=== PATIENT | female | born 2000 | race Caucasian/White ===

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

== ENCOUNTER → 2023-03-04 | Outpatient (CLI) | payer OTHER, SELFPAY ==
--- OUTSIDE RECORDS SUMMARY | 2023-03-04 15:22 | XMS RPT_ITS | CCD ---
Author Name Unknown Address [address] [place] [address] Organization [facility] Care Team Providers Care Superintendent Marine Name Role Phone SHANT ANG Unavailable Unavailable SHANT ANG Unavailable Unavailable HILLS, JENNIFER Cruz Unavailable Unavailable CHERRI, JOAO Unavailable Unavailable HILLSTRISTANJENNIFER D Unavailable Unavailable HILLS, JENNIFER D Unavailable Unavailable CHERRI, JOAO Unavailable Unavailable CHERRI, JOAO Unavailable Unavailable TRISTAN MEEKSBERLY D Unavailable Unavailable UNGERER, DOMINGA WATCH REPAIRER APPRENTICE Admitting Unavailable UNGERER, DOMINGA WATCH REPAIRER APPRENTICE Primary Care Unavailable UNGERER, DOMINGA WATCH REPAIRER APPRENTICE Attending Unavailable ZANE STEVEN Consulting Unavailable PROVIDER, UNKNOWN Consulting Unavailable PROVIDER, UNKNOWN Consulting Unavailable PROVIDER, UNKNOWN Consulting Unavailable UNGERER, DOMINGA WATCH REPAIRER APPRENTICE Primary Care Unavailable UNGERER, DOMINGA WATCH REPAIRER APPRENTICE Attending Unavailable UNGERER, DOMINGA WATCH REPAIRER APPRENTICE Admitting Unavailable ZANE STEVEN Consulting Unavailable PROVIDER, UNKNOWN Consulting Unavailable PROVIDER, UNKNOWN Consulting Unavailable PROVIDER, UNKNOWN Consulting Unavailable CORAZON GUILLEN R Attending Unavailable ELZBIETA GUILLENLE R Admitting Unavailable STEPHANIE GUILLENHELLE R Primary Care Unavailable ZANE STEVEN Consulting Unavailable PROVIDER, UNKNOWN Consulting Unavailable PROVIDER, UNKNOWN Consulting Unavailable PROVIDER, UNKNOWN Consulting Unavailable UNGERER, DOMINGA WATCH REPAIRER APPRENTICE Primary Care Unavailable UNGERER, DOMINGA WATCH REPAIRER APPRENTICE Attending Unavailable UNGERER, DOMINGA WATCH REPAIRER APPRENTICE Admitting Unavailable ZANE STEVEN Consulting Unavailable PROVIDER, UNKNOWN Consulting Unavailable PROVIDER, UNKNOWN Consulting Unavailable PROVIDER, UNKNOWN Consulting Unavailable Allergies Allergy Classification Reported Allergen(s) Allergy Type Date of Onset Reaction(s) Facility (1 source) Amoxicillin; Translations: [AMOXICILLIN] Drug Allergy 12-14-2017 [facility] Repository Problems Active Problems Problem Classification Problem Date Documented Da te Episodic/Chronic Administrative/social admission (3 sources) Person with feared health complaint in whom no diagnosis is made; Translations: [Person with feared health complaint in whom no diagnosis is made] Onset: 08-18-2022 Episodic Nonmalignant breast conditions (1 source) Solitary cyst of left breast; Translations: [Solitary cyst of left breast] Onset: 01-04-2023 Episodic Past or Other Problems Problem Classification Problem Date Documented Da te Episodic/Chronic Other skin disorders (3 sources) Rash and other nonspecific skin eruption; Translations: [Rash and other nonspecific skin eruption] Onset: 06-30-2022 Episodic Residual codes; unclassified (1 source) Body mass index (BMI) 20.0-20.9, adult; Translations: [Body mass index [BMI] 20.0-20.9, adult] Onset: 06-30-2022 Episodic Results Test Name Value Interpretation Reference Range Facil ity Encounters Encounter Date Encounter Type Care Provider Facility Start: 01-04-2023 End: 01-04-2023 ambulatory [facility]INGA ALLAN [facility] Start: 08-18-2022 End: 08-18-2022 [facility] CORAZON GUILLEN [facility] Start: 06-30-2022 End: 06-30-2022 [facility] DOMINGA ALLNA [facility] Start: 12-14-2017 End: 12-15-2017 Patient encounter procedure [facility] Start: 12-14-2017 End: 12-14-2017 Patient encounter procedure [facility] Start: 09-26-2017 End: 09-26-2017 Patient encounter procedure SHANT ANG [facility] Payers Date Payer Category Payer Unknown [id number] [id number] 2000 Unknown [id number] [id number] 2000 Unknown [id number] 2.16.84 [id number] 2000 Unknown [id number] [id number] [id number] Unknown [id number] 2.16.8 [id number] Unknown [id number] 2.16.8 [id number] Unknown [id number] 2.16.8 [id number] Unknown [id number] Unknown [id number] Unknown [id number] Summary Purpose Family History No Family History Records FoundNo Family History Records FoundNo Family History Records Found Advance Directives No Advanced Directives Records FoundNo Advanced Directives Records FoundNo Advanced Directives Records Found Additional Source Comments INFORMATION SOURCE (unrecogn ized section and content) DATE CREATED AUTHOR AUTHOR'S ORGANIZ ATION 12/19/2020 [facility] DATE CREATED AUTHOR AUTHOR'S ORGANIZ ATION 01/10/2023 [facility] FOR RECORDS PERTAINING TO PATIENTS WHO ARE OR HAVE BEEN ENROLLED IN A CHEMICAL DEPENDENCY/SUBSTANCEABUSE PROGRAM, SOME INFORMATION MAY BE OMITTED. This clinical summary was aggregated from multiple sources. Caution should be exercised in using it in the provision of clinical care. This summary normalizes information from multiple sources, and as a consequence, information in this document may materially change the coding, format and clinical context of patient data. In addition, data may be omitted in some cases. CLINICAL DECISIONS SHOULD BE BASED ON THE PRIMARY CLINICAL RECORDS. [facility]. provides no warranty or guarantee of the accuracy or completeness of information in this document.
[2023-03-04 15:36] LABS: Absolute Lymphocyte Count 2.58 X10^3/uL (0.83-4.51); Absolute Neutrophil Count 8.2 X10^3/uL (2.0-7.7); Basophil# 0.04 X10^3/uL; Basophil% 0.3 % (0-1); Eosinophils% 1.7 % (0-5); Hematocrit 37.3 % (37-47); Hemoglobin 13.1 g/dL (12.0-15.0); Lymphocyte # 2.58 X10^3/ul (0.83-4.51); Lymphocyte % 22.2 % (19-41); Mean Corp Hgb Conc 35.1 g/dL (32-36); Mean Corpuscular Volume 85.6 fL (81-99); Mean Platelet Vol. 9.9 fl (6.2-12.0); Monocyte# 0.59 X10^3/uL; Monocyte% 5.1 % (0-10); NRBC Flagged by Analyzer 0 % (0-5); Neutrophil # 8.17 X10^3/uL (2.7-7.7); Neutrophil % 70.4 % (47-70); Platelet Count 278 K/mm3 (150-450); RBC Distribution Width CV 11.6 % (11.6-14.6); Red Blood Count 4.36 M/mm3 (4.2-5.4); White Blood Count 11.6 K/mm3 (4.4-11.0)
[2023-03-04 16:47] LABS: HIV - WCH Non-Reactive (Nonreactive); Hepatitis B Surface Antigen Non-Reactive (Nonreactive); Hepatitis C Antibody Non-Reactive (Nonreactive); Rubella IgG Reactive (Nonreactive); Syphilis Antibodies Non-reactive
[2023-03-08 06:09] LABS: Chlamydia By Nucleic Acid AMP Negative (Negative); Gonococcus By Nucleic Acid AMP Negative (Negative)
[2023-03-10 20:43] LABS: HPV Reflexed? NOT INDICATED
== END | disposition home or self-care (01) ==
PROVIDERS: PCP Nurse Practitioner Family; Referring Provider Advanced Practice Midwife; Visit Provider Advanced Practice Midwife
DX: Z34.90 Encounter for supervision of normal pregnancy, unspecified, unspecified trimester (principal)
CPT/HCPCS: 36415; 85025; 86703; 86762; 86780; 86803; 86850; 86900; 86901; 87086; 87340; 87491; 87591; 88175; G0145

== ENCOUNTER → 2023-03-15 | Outpatient (CLI) | payer OTHER, SELFPAY ==
--- NOTE | 2023-03-15 13:04 | US_ITS ---
INDICATION: dating EXAMINATION: Ultrasound US OB Less Than 14 Weeks TECHNIQUE: Transabdominal pelvic ultrasound was performed. Grayscale, spectral waveform, and color flow Doppler evaluation of the adnexa. COMPARISON: LMP: [Unknown Beta-hCG: Unknown FINDINGS: There is a single intrauterine gestational sac. POLE: Identified BPD: 2.4 cm, 14 weeks 0 days. Head circumference 8.86 cm, 14 weeks 0 days. Abdominal circumference: 7.22 cm, 13 weeks 5 days. Femur length: 1.17 cm, 13 weeks 3 days. Presentation is variable on the left ESTIMATED GESTATION AGE: 13 weeks 6 days.. Estimated date of delivery is September 14, 2023. HEART MOTION: 156 bpm. PLACENTA: Posteriorly relocated. SUBCHORIONIC HEMORRHAGE: None. AMNIOTIC FLUID: Qualitatively normal. US/Init OB < 14Wks US IMPRESSION: Single live intrauterine . Estimated gestational age is 13 weeks 6 days. Electronically Signed: Ramesh Hendricks DO at 19:10 EST Reading Location ID and State: [facility] / [place] Tel [phone], Service support ,
== END | disposition home or self-care (01) ==
LOC: OPUS 13:01
PROVIDERS: PCP Nurse Practitioner Family; Referring Provider Advanced Practice Midwife; Visit Provider Advanced Practice Midwife
DX: O09.90 Supervision of high risk pregnancy, unspecified, unspecified trimester (principal); Z3A.00 Weeks of gestation of pregnancy not specified
CPT/HCPCS: 76801

== ENCOUNTER → 2023-05-03 | Outpatient (CLI) | payer OTHER, SELFPAY ==
--- NOTE | 2023-05-03 14:06 | US_ITS ---
INDICATION: anatomy EXAMINATION: Ultrasound US OB Greater Than 14 Weeks TECHNIQUE: Transabdominal pelvic ultrasound was performed. COMPARISON: Prior study dated: 03/15/2023 LMP: Unknown. Beta-hCG: Unknown. Provided EGA: None. FINDINGS: INTRAUTERINE GESTATION(s): Single. HEART MOTION is 155 bpm. BIOMETRIC MEASUREMENTS: HEAD CIRCUMFERENCE: 18.3 cm which corresponds to 20 weeks and 5 days. BIPARIETAL DIAMETER: 4.8 cm which corresponds to 20 weeks and 4 days. ABDOMINAL CIRCUMFERENCE: 16 cm which corresponds to 21 weeks and 1 day. FEMORAL LENGTH: 3.3 cm which corresponds to 20 weeks and 3 days. ESTIMATED DUE DATE (PATRICIA): 09/15/2023 ESTIMATED WEIGHT: 376 g +/- 50 6 g, 40 percentile PRESENTATION: Variable AMNIOTIC FLUID INDEX (SHAWN): Within normal limits, maximal pocket measures 4 cm. The SHAWN was not measured. BIOPHYSICAL PROFILE (BPP): Not assessed. PLACENTA: Posterior. There is no placenta previa or abruption. CERVIX: The cervix is closed measuring 4 cm in length. MATERNAL OVARIES: Not seen. FREE FLUID: None. ANATOMY: LATERAL VENTRICLES: Visualized measuring 4 mm. CHOROID PLEXUS: Visualized measuring 6 mm. MIDLINE FALX: Visualized. CAVUM SEPTUM PELLUCIDI: Visualized. CEREBELLUM: Unremarkable CISTERNA MAGNA: Visualized measuring 5 mm. UPPER LIP: Not well visualized FOUR CHAMBER HEART VIEW: Visualized. STOMACH: Visualized. KIDNEYS: Visualized, no hydronephrosis. URINARY BLADDER: Visualized. UMBILICAL CORD INSERTION into the abdomen: Unremarkable. UMBILICAL CORD vessel number: Normal three vessel cord. SPINE: Unremarkable. No definite posterior spinal defect observed. UPPER AND LOWER EXTREMITIES: Present. GENDER: Male. IMPRESSION: Single live intrauterine with an estimated gestational age of 20 weeks and 5 days. The PATRICIA is 10/04/2023. Electronically Signed: Scooby Navarro MD at 15:47 EDT , INDICATION: anatomy EXAMINATION: Ultrasound US OB Greater Than 14 Weeks TECHNIQUE: Transabdominal pelvic ultrasound was performed. COMPARISON: Prior study dated: 03/15/2023 LMP: Unknown. Beta-hCG: Unknown. Provided EGA: None. FINDINGS: INTRAUTERINE GESTATION(s): Single. HEART MOTION is 155 bpm. BIOMETRIC MEASUREMENTS: HEAD CIRCUMFERENCE: 18.3 cm which corresponds to 20 weeks and 5 days. BIPARIETAL DIAMETER: 4.8 cm which corresponds to 20 weeks and 4 days. ABDOMINAL CIRCUMFERENCE: 16 cm which corresponds to 21 weeks and 1 day. FEMORAL LENGTH: 3.3 cm which corresponds to 20 weeks and 3 days. ESTIMATED DUE DATE (PATRICIA): 09/15/2023 ESTIMATED WEIGHT: 376 g +/- 50 6 g, 40 percentile PRESENTATION: Variable AMNIOTIC FLUID INDEX (SHAWN): Within normal limits, maximal pocket measures 4 cm. The SHAWN was not measured. BIOPHYSICAL PROFILE (BPP): Not assessed. PLACENTA: Posterior. There is no placenta previa or abruption. CERVIX: The cervix is closed measuring 4 cm in length. MATERNAL OVARIES: Not seen. FREE FLUID: None. ANATOMY: LATERAL VENTRICLES: Visualized measuring 4 mm. CHOROID PLEXUS: Visualized measuring 6 mm. MIDLINE FALX: Visualized. CAVUM SEPTUM PELLUCIDI: Visualized. CEREBELLUM: Unremarkable CISTERNA MAGNA: Visualized measuring 5 mm. UPPER LIP: Not well visualized FOUR CHAMBER HEART VIEW: Visualized. STOMACH: Visualized. KIDNEYS: Visualized, no hydronephrosis. URINARY BLADDER: Visualized. UMBILICAL CORD INSERTION into the abdomen: Unremarkable. UMBILICAL CORD vessel number: Normal three vessel cord. SPINE: Unremarkable. No definite posterior spinal defect observed. UPPER AND LOWER EXTREMITIES: Present. GENDER: Male. US/OB Anatomy w/ Transvaginal
== END | disposition home or self-care (01) ==
LOC: US 14:06
PROVIDERS: PCP Nurse Practitioner Family; Referring Provider Nurse Practitioner Women's Health; Visit Provider Nurse Practitioner Women's Health
DX: Z34.92 Encounter for supervision of normal pregnancy, unspecified, second trimester (principal)
CPT/HCPCS: 76805; 76817

== ENCOUNTER → 2023-07-05 | Outpatient (CLI) | payer OTHER, SELFPAY ==
[2023-07-05 15:07] LABS: Absolute Lymphocyte Count 1.96 X10^3/uL (0.83-4.51); Absolute Neutrophil Count 7.3 X10^3/uL (2.0-7.7); Basophil# 0.03 X10^3/uL; Basophil% 0.3 % (0-1); Eosinophil# 0.11 X10^3/uL; Eosinophils% 1.1 % (0-5); Hematocrit 32.1 % (37-47); Hemoglobin 10.9 g/dL (12.0-15.0); Lymphocyte # 1.96 X10^3/ul (0.83-4.51); Lymphocyte % 19.1 % (19-41); Mean Corpuscular Hgb 28.3 pg (27.0-32.0); Mean Corpuscular Volume 83.4 fL (81-99); Mean Platelet Vol. 10.2 fl (6.2-12.0); Monocyte# 0.79 X10^3/uL; Monocyte% 7.7 % (0-10); NRBC Flagged by Analyzer 0 % (0-5); Neutrophil # 7.32 X10^3/uL (2.7-7.7); Neutrophil % 71.1 % (47-70); Platelet Count 222 K/mm3 (150-450); RBC Distribution Width CV 11.7 % (11.6-14.6); RBC Distribution Width SD 34.9 fl (35.1-43.9); Red Blood Count 3.85 M/mm3 (4.2-5.4); White Blood Count 10.3 K/mm3 (4.4-11.0)
[2023-07-05 15:16] LABS: Glucose Challenge Gest 1H 50g 113 mg/dL (70-140)
[2023-07-05 15:50] LABS: HIV - WCH Non-Reactive (Nonreactive); Syphilis Antibodies Non-reactive
== END | disposition home or self-care (01) ==
PROVIDERS: PCP Nurse Practitioner Family; Referring Provider Obstetrics & Gynecology; Visit Provider Obstetrics & Gynecology
DX: O09.90 Supervision of high risk pregnancy, unspecified, unspecified trimester (principal); Z13.1 Encounter for screening for diabetes mellitus; Z3A.00 Weeks of gestation of pregnancy not specified
CPT/HCPCS: 36415; 82950; 85025; 86703; 86780

== ENCOUNTER 2023-07-14 14:50 | Outpatient (CLI) | payer OTHER, SELFPAY ==
[2023-07-14] VITALS (9 sets, daily range): BP systolic 112–139; BP diastolic 57–81; PULSE 88–105; RESP 16; TEMP 36.5; O2SAT 98; BMI 25.3
[2023-07-14 16:31] LABS: Color, Urine Yellow (Yellow); Glucose, Dipstick Normal (Normal); Ketone-Dipstick Negative (Negative); Leukocyte Esterase-Dipstick 25 /ul (Negative); Nitrite-Dipstick Negative (Negative); Occult Blood-Urine Negative /ul (Negative); Protein-Dipstick Negative (Negative); Urine Bilirubin Dipstick Negative (Negative); Urine Clarity Clear (Clear); Urine Urobilinogen Normal (Normal)
--- NOTE | 2023-07-14 16:57 | OB.TRI.PN_ITS ---
Progress Notes Date of Service: 07/14/23 Progress Note: Patient presents for triage evaluation secondary to contracitons FHT: 140 Moderate variability reactive no decelerations category I tracing [place]: irregular Contractions Assessment and plan: threatened labor 1 cm dilated no change Reactive NST, reassuring maternal and status patient discharged to home to follow- up as scheduled. See problem list details for additional plan information. Laboratory Studies: Laboratory Tests 07/14/23 Range/Units 15:15 Urine Color Yellow (Yellow) Urine Clarity Clear (Clear) Urine pH 7.0 (5.0 - 8.0) Ur Specific [place] 1.010 (1.002-1.030) Urine Protein Negative (Negative) mg/dl Urine Glucose (UA) Normal (Normal) mg/dl Urine Ketones Negative (Negative) mg/dl Urine Occult Blood Negative (Negative) /ul Urine Nitrite Negative (Negative) Urine Bilirubin Negative (Negative) mg/dL Urine Urobilinogen Normal (Normal) mg/dl Ur Leukocyte Esterase 25 H (Negative) /ul Charges/Coding Procedures Urinary/Genital [id number]: [id number] non-stress test Interp
== END 2023-07-14 17:16 | disposition home or self-care (01) ==
LOC: WPOUT 14:55 → WP 14:56
PROVIDERS: PCP Nurse Practitioner Family; Referring Provider Obstetrics & Gynecology; Visit Provider Obstetrics & Gynecology
DX: O47.9 False labor, unspecified (principal); Z3A.00 Weeks of gestation of pregnancy not specified
CPT/HCPCS: 59025; 59050; 81002; 87086; 99212; 99221; G0378; G0463

== ENCOUNTER → 2023-07-29 | Outpatient (CLI) | payer OTHER, SELFPAY ==
--- NOTE | 2023-07-29 17:48 | US_ITS ---
STUDY: SECOND AND THIRD TRIMESTER OBSTETRICAL ULTRASOUND - LIMITED REASON FOR EXAM: Female, 23 years old growth COMPARISON: None TECHNIQUE: Transabdominal sonographic images of the pelvis. FINDINGS: There is a single intrauterine . The fetus is in the cephalic presentation. The heart rate measures 162 BPM. Amniotic fluid volume is normal with an SHAWN of 17.1 cm. The placenta is posterior. BIOMETRY: BPD: 8.7 cm: 34 weeks, 6 days HC: 31.2 cm: 35 weeks, 0 days AC: 30.5 cm: 34 weeks, 3 days FL: 7.0 cm: 35 weeks, 6 days age by today''s US: 34 weeks, 4 days and PATRICIA of 09/05/2023. Estimated weight: 2581 grams corresponding to the 89th percentile. US/OB Limited With Biometrics IMPRESSION: 1. Single live intrauterine in the cephalic presentation with a posterior placenta. 2. Estimated weight of 2581 g corresponding to the 89th percentile. Electronically Signed: Kaiser Mg DO at 7:31 EDT ,
== END | disposition home or self-care (01) ==
LOC: US 17:47
PROVIDERS: PCP Nurse Practitioner Family; Referring Provider Obstetrics & Gynecology; Visit Provider Obstetrics & Gynecology
DX: O99.119 Other diseases of the blood and blood-forming organs and certain disorders involving the immune mechanism complicating pregnancy, unspecified trimester (principal); D68.2 Hereditary deficiency of other clotting factors; Z3A.00 Weeks of gestation of pregnancy not specified
CPT/HCPCS: 76816

== ENCOUNTER → 2023-08-17 | Outpatient (CLI) | payer OTHER, SELFPAY | END | disposition home or self-care (01) | PROVIDERS: PCP Nurse Practitioner Family; Referring Provider Advanced Practice Midwife; Visit Provider Advanced Practice Midwife | DX: O09.92 Supervision of high risk pregnancy, unspecified, second trimester (principal) | CPT/HCPCS: 87081 ==

== ENCOUNTER 2023-08-22 14:05 | Outpatient (CLI) | payer OTHER, SELFPAY ==
--- NOTE | 2023-08-22 14:11 | US_ITS ---
STUDY: OBSTETRICAL ULTRASOUND - BIOPHYSICAL PROFILE REASON FOR EXAM: Female, 23 years old nonreactive NST in office LMP: Unknown. PRIOR ULTRASOUND: Comparison is made with prior study dated July 20132023. TECHNIQUE: Transabdominal TECHNICAL QUALITY: Adequate. FINDINGS: There is a single intrauterine fetus. The fetus is in a cephalic presentation. There is demonstrated cardiac activity with a heart rate of 150 bpm. There is a normal amniotic fluid volume. The largest amniotic fluid pocket measures 3.3 cm x 5.1 cm. The amniotic fluid index (SHAWN) is 15.4 cm. The placenta is posterior in location and is not low lying. There are Grade 3 placental changes. Age by LMP: 36 weeks, 5 days. PATRICIA by LMP: September 14, 2023. BIOPHYSICAL PROFILE: Breathing Movements (FBM): 0 Gross Body Movements (GBM): 2 Tone (FT): 2 Amniotic Fluid Volume (AFV): 2 TOTAL SCORE: 6 / 8 US/Biophysical Prof W/O Non Stres IMPRESSION: biophysical profile of 07/22. Electronically Signed: Cordell Stone MD at 15:44 EDT ,
[2023-08-22 14:19] VITALS: BP 132/75; PULSE 89; RESP 16; TEMP 36.5
[2023-08-22 14:22] VITALS: BMI 26.1
[2023-08-22 15:59] VITALS: BP 112/68; PULSE 64; RESP 16
--- NOTE | 2023-08-22 18:01 | OB.TRI.PN ---
Progress Notes Date of Service: 08/22/23 Progress Note: Patient presents for triage evaluation secondary to variables in office on NST FHT: 130 Moderate variability reactive no decelerations category I tracing [place]: irregular mild Contractions Assessment and plan: BPP 07/22 with Reactive NST = 10, reassuring maternal and status patient discharged to home to follow-up in office. See problem list details for additional plan information. Charges/Coding Multi Select Codes Urinary/Genital Urinary/Genital CPT Codes: 86028-99 non-stress test Interp Assessment & Plan (1) History of delivery: COMMENT: nl anatomy CL. reviewed PTL precautions (2) Anemia: COMMENT: add Fe (3) Abnormal Papanicolaou smear of cervix: COMMENT: LISL at NOB. 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 discussed with JV and plan for weekly nsts form 36 weeks and delivery at 39 (5) Supervision of high-risk : QUALIFIERS: Trimester: second trimester Qualified Code(s): O09.92 - Supervision of high risk , unspecified, second trimester COMMENT: PRR, , PATRICIA 09/21/23,boy PC Edna Ibarra (6) : QUALIFIERS: Weeks of gestation: 36 weeks Qualified Code(s): Z3A.36 - 36 weeks gestation of COMMENT: GBS neg, anatomy nl, declines genetic & carrier testing; declines AFP (7) Asthma: COMMENT: environmental induced (8) NST (non-stress test) with decelerations: COMMENT: bpp 8 d/c home. to follow up in office
== END 2023-08-22 16:45 | disposition home or self-care (01) ==
LOC: WPOUT 14:09 → WP 14:09
PROVIDERS: PCP Nurse Practitioner Family; Referring Provider Advanced Practice Midwife; Visit Provider Advanced Practice Midwife
DX: O36.8330 Maternal care for abnormalities of the fetal heart rate or rhythm, third trimester, not applicable or unspecified (principal); D68.2 Hereditary deficiency of other clotting factors; Z3A.36 36 weeks gestation of pregnancy; O99.513 Diseases of the respiratory system complicating pregnancy, third trimester; J45.909 Unspecified asthma, uncomplicated; O99.113 Other diseases of the blood and blood-forming organs and certain disorders involving the immune mechanism complicating pregnancy, third trimester; O99.013 Anemia complicating pregnancy, third trimester; R87.619 Unspecified abnormal cytological findings in specimens from cervix uteri
CPT/HCPCS: 59025; 59050; 76819; 99221; G0378

== ENCOUNTER 2023-09-07 07:29 | Inpatient (IN) | payer OTHER, SELFPAY ==
[2023-09-07] VITALS (33 sets, daily range): BP systolic 116–135; BP diastolic 51–78; PULSE 75–106; RESP 16–18; TEMP 36.2–37.2; O2SAT 97; BMI 26.6
[2023-09-07] MEDS: Lactated Ringers 1,000 ML 50 ML IV (07:50)
[2023-09-07] MEDS: Oxytocin 15 Units/NS 250ml 15 UNITS/250 ML IV.SOLN 2 UNITS IV (08:11)
[2023-09-07 08:21] LABS: Absolute Lymphocyte Count 1.73 X10^3/uL (0.83-4.51); Absolute Neutrophil Count 7.4 X10^3/uL (2.0-7.7); Basophil# 0.02 X10^3/uL; Basophil% 0.2 % (0-1); Eosinophil# 0.11 X10^3/uL; Eosinophils% 1.1 % (0-5); Hematocrit 31.4 % (37-47); Hemoglobin 9.9 g/dL (12.0-15.0); Lymphocyte # 1.73 X10^3/ul (0.83-4.51); Lymphocyte % 17.2 % (19-41); Mean Corp Hgb Conc 31.5 g/dL (32-36); Mean Corpuscular Hgb 24.1 pg (27.0-32.0); Mean Corpuscular Volume 76.6 fL (81-99); Mean Platelet Vol. 10.8 fl (6.2-12.0); NRBC Flagged by Analyzer 0 % (0-5); Neutrophil # 7.38 X10^3/uL (2.7-7.7); Neutrophil % 73.5 % (47-70); Platelet Count 248 K/mm3 (150-450); RBC Distribution Width CV 13.6 % (11.6-14.6); RBC Distribution Width SD 37.7 fl (35.1-43.9)
[2023-09-07 09:01] LABS: Syphilis Antibodies Non-reactive
--- NOTE | 2023-09-07 10:20 | PCM.HP.OB ---
HPI - General General Date of Admission: 09/07/23 HPI Narrative GLADYS RING, is a 23 F who presents for IOL secondary to factor V leiden. she denies any vb lof admits good fm. Maternal Data Information PATRICIA Calculator Estimated Delivery Date Method Current WG Current Estimate 09/14/23 Ultrasound #1 39w 1d Other Estimates 09/21/23 LMP (Certain) 38w 1d [facility] Medical History Anemia Family history of autism Home Medications ?Medication ?Instructions ?Recorded ?Last Taken ?Type vits,calcium no.78-iron 1 tab PO DAILY 10/11/18 09/06/23 07:00 History fumarate-folic acid 29 mg-1 mg 1 TAB tablet Allergy/AdvReac Type Severity Reaction Status Date / Time amoxicillin Allergy Hives Verified 09/07/23 07:50 Penicillins (PCN) Allergy Hives Verified 09/07/23 07:50 azithromycin (From Zithromax) AdvReac Nausea Verified 09/07/23 07:50 Family History Mother Factor V deficiency Sister Factor V deficiency Surgical History History of tonsillectomy Social History adopted: No household members: significant other and children number of children: 1 current occupational status: employed 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 current occupational exposures/hazards: No pets and animals: Yes (not managing litterbox) pets and animals: cat(s) history of recent travel: No sexually active: Yes Smoking Status: Never smoker alcohol intake: never substance use type: does not use well-balanced diet: daily or most days caffeine: Yes Type: coffee Number of servings: 1 and tea Number of servings: 1 eating out: 1-3 times/week during the past year weight has: remained stable what type of physical activity do you participate in: none sharon/mandaen: [employer] seatbelt use: always do you feel safe at home: Yes additional social history: -[employer] History 2 Elective abortions Hx Para 1 Spontaneous abortions Hx # Term Pregnancies Ectopic pregnancies Hx # Pregnancies Multiple births # of living children 1 Past Pregnancies Del. Date Name GA/Weeks Outcome Route Bth Weight Infant Gen Labor Lgth Anesthesia Del Locatn Provider FOB 10/11/18 Edna Diaz 34 live - 6#1oz Female 8 Hrs epidural [facility] Dr.Weeman Valdivia Visit Details Expected Delivery Route/Plan Labor Preferences- CB/BF classes: [] labor support person: [] labor intervention preferences: [] pain management options preferred: [] cut cord/dad catch: [] : [] PP control planned: [] discussed possible routes of delivery and associated risks: [] special requests: [] Plans Covid status: [] Flu vaccine: [] Tdap vaccine: [] Rhogam: [] LARC form signed: [] Problem list reviewed and updated with the most current plan of care details and appropriate orders placed. Relevant counseling for the gestational age provided. Continue routine care and follow up unless otherwise noted in visit notes/problem list details OB Flowsheet Initial Weight: Not Recorded Date <del>?</del> EGA Weight BP Urine Prot <del>?</del> Glucose FHR FuHt Pres Dilation <del>?</del> Effaced St Visit Note 03/04/23 <del>?</del> 12w 2d 144 lb 4 oz 120/79 <del>?</del> 168 <del>?</del> KW-CRL not cons with dates. measuring 12.5 weeks. formal US ordered. Denies NIPT at this time. 03/29/23 <del>?</del> 15w 6d 145 lb 130/82 Negative <del>?</del> Negative 160 <del>?</del> MH-NO VB, cramping or FM yet. Has changed cat litter-offered/declines lab for toxo. Enc to avoid. 04/26/23 <del>?</del> 19w 6d 151 lb 118/72 Negative <del>?</del> Negative 154 <del>?</del> No VB. Feeling flutters. Anatomy US next week. Denies concerns 06/08/23 <del>?</del> 26w 0d 164 lb 8 oz 130/80 Negative <del>?</del> Negative 150 26 <del>?</del> JV- no lof, vaginal bleeidng, or dec fm. 07/05/23 <del>?</del> 29w 6d 167 lb 120/81 <del>?</del> 160 30 <del>?</del> KW- no vb/lof/ctx. good fm. Labs today after appt. Declines TDAP. LARC done. 07/22/23 <del>?</del> 32w 2d 170 lb 6 oz 126/83 Trace <del>?</del> Negative 140 32 Cephalic 1 <del>?</del> SM- no vb lof good fm irreuglar ctx. no cervicla change from triage eval. discussed fator V POC 08/04/23 <del>?</del> 34w 1d 175 lb 8 oz 128/79 Negative <del>?</del> Negative 145 33 <del>?</del> JV- no lof, vaginal bleeding, or dec fm. plan gbs next visit. 08/17/23 <del>?</del> 36w 0d 179 lb 6 oz 121/74 Negative <del>?</del> Negative 155 35 Cephalic 2 <del>?</del> 70 -2 KW- no vb/lof/ctx. good fm. gbs today 08/22/23 <del>?</del> 36w 5d 178 lb 4 oz 117/78 Negative <del>?</del> Negative 140 <del>?</del> Kw- no vb/lof/vb. good fm. to WP for variables on NST 09/02/23 <del>?</del> 38w 2d 182 lb 4 oz 133/75 Negative <del>?</del> Negative 150 Cephalic 1.5 <del>?</del> 50 -2 JV- reactive NST, planning 39 week IOL (next tuesday) NST FHR Rate Baby A Baseline: 130 Variability:: Moderate Accelerations:: 15 x 15 Decelerations:: None NST Reactive:: Yes FHR Category:: Category I Uterine Activity:: irregular ROS Constitutional Constitutional: Reports systems reviewed and no addt'l complaints, except as documented Eyes Eyes: Denies change in vision ENT HEENT: Reports systems reviewed and no addt'l complaints, except as documented; Denies headache(s) Cardiovascular Cardiovascular: Reports systems reviewed and no addt'l complaints, except as documented; Denies chest pain or dyspnea Respiratory/Chest Respiratory/Chest: Reports systems reviewed and no addt'l complaints, except as documented Gastrointestinal Gastrointestinal: Reports systems reviewed and no addt'l complaints, except as documented; Denies abdominal pain Genitourinary Genitourinary: Reports systems reviewed and no addt'l complaints, except as documented, contractions Details: present (irregular) and movement Details: present; Denies dysuria or genital lesions Musculoskeletal Musculoskeletal: Reports systems reviewed and no addt'l complaints, except as documented Neurologic Neurologic: Reports systems reviewed and no addt'l complaints, except as documented Endocrine Endocrinology: Reports systems reviewed and no addt'l complaints, except as documented Vital Signs Vital Signs Vital Signs: 09/07/23 07:39 09/07/23 07:39 09/07/23 07:39 Temperature 97.3 F L Temperature Source Pulse Rate 106 H Respiratory Rate Blood Pressure 135/72 H BP Systolic 135 BP Diastolic 72 09/07/23 07:39 09/07/23 07:39 09/07/23 07:39 Temperature 97.4 F L Temperature Source Temporal Pulse Rate Respiratory Rate 18 Blood Pressure BP Systolic BP Diastolic 09/07/23 08:33 09/07/23 08:33 09/07/23 08:34 Temperature Temperature Source Pulse Rate 97 Respiratory Rate 16 Blood Pressure 116/63 BP Systolic 116 BP Diastolic 63 09/07/23 09:23 09/07/23 09:24 09/07/23 09:24 Temperature 98.1 F Temperature Source Pulse Rate 85 Respiratory Rate Blood Pressure 131/63 H BP Systolic 131 BP Diastolic 63 Weight Weight: 180 lb 5.41 oz Body Mass Index (BMI) 26.6 Physical Exam Const alert, oriented x3, no apparent distress and healthy appearing HEENT normocephalic and moist oral mucous membranes Head and Scalp: atraumatic Neck full ROM, no lymphadenopathy, supple and thyroid normal General: trachea midline Lymph Lymphatic: no lymphadenopathy noted Chest inspection of chest normal Resp normal respiratory effort Cardio regular rate GI normal to inspection, nondistended, normoactive bowel sounds, soft to palpation and non-tender Inspection: gravid external exam normal Manual OB Exam: estimated gestational size appropriate, presentation cephalic, dilated, effaced and station Extremity normal to inspection General Extremity: Negative for edema Skin no rashes or lesions noted Neuro no focal motor deficits and deep tendon reflexes 2+ bilaterally Motor Exam: strength 5/5 throughout and clonus absent Psych mental status grossly normal Labs Labs Labs: Blood Type O POSITIVE Antibody Screen NEGATIVE Hct 31.4 % (37-47) L Hgb 9.9 g/dL (12.0-15.0) L Obstetrics Ultrasound Syphilis Total Ab Non-reactive Rubella IgG Antibody Reactive (Nonreactive) Hep Bs Antigen Non-Reactive (Nonreactive) Hepatitis C Antibody Non-Reactive (Nonreactive) Hepatitis C Ab (EIA) <0.1 s/co ratio (0.0-0.9) Chlamydia DNA (SIERRA) Negative (Negative) N.gonorrhoeae DNA (SIERRA) Negative (Negative) HIV 1&2 Antibody Non-Reactive (Nonreactive) Glucose 1 Hr 50 gm 113 mg/dL (70-140) Group B Strep DNA Negative (Negative) Rhogam given: No Assessment & Plan (1) History of delivery: COMMENT: nl anatomy CL. reviewed PTL precautions (2) Anemia: COMMENT: add Fe (3) Abnormal Papanicolaou smear of cervix: COMMENT: LISL at NOB. 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 discussed with JV and plan for weekly nsts form 36 weeks and delivery at 39. anticoagulation only if . (5) Asthma: COMMENT: environmental induced (6) : QUALIFIERS: Weeks of gestation: 38 weeks Qualified Code(s): Z3A.38 - 38 weeks gestation of COMMENT: GBS neg, anatomy nl, declines genetic & carrier testing; declines AFP (7) Supervision of high-risk : QUALIFIERS: Trimester: second trimester Qualified Code(s): O09.92 - Supervision of high risk , unspecified, second trimester COMMENT: PRR, , PATRICIA 09/21/23,boy PC Edna Ibarra PLAN: Plan Patient presents IOL, plan management for with pitocin/AROM. Pain management: plans epidural. GBS negative. Management of any complications: factor V see pl details I have reviewed the [facility] and made any clinically relevant updates.
[2023-09-07] MEDS: Lactated Ringers 1,000 ML 999 ML IV (15:09)
[2023-09-07] MEDS: fentaNYL 100 MCG/2 ML Ampul IV (15:46)
[2023-09-07] MEDS: Lidocaine 1% (20 ml mdv) 20 ML Vial INFILT (15:50)
[2023-09-07] MEDS: Oxytocin 15 Units/NS 250ml 15 UNITS/250 ML IV.SOLN 83 UNITS IV (16:15)
--- NOTE | 2023-09-07 17:22 | OP.PCM_ITS ---
Assessment & Plan (1) Factor V deficiency: COMMENT: heterozygote per patient no family hx of VTE. discussed with JV and plan for weekly nsts form 36 weeks and delivery at 39. anticoagulation only if . (2) Encounter for induction of labor: (3) Supervision of high-risk : QUALIFIERS: Trimester: second trimester Qualified Code(s): O09.92 - Supervision of high risk , unspecified, second trimester COMMENT: PRR, , PATRICIA 09/21/23,boy PC Placer BF Fred (4) : QUALIFIERS: Weeks of gestation: 38 weeks Qualified Code(s): Z3A.38 - 38 weeks gestation of COMMENT: GBS neg, anatomy nl, declines genetic & carrier testing; declines AFP (5) Asthma: COMMENT: environmental induced (6) Vaginal delivery: COMMENT: SM IOL factor V boy 39 Maternal Data Information PATRICIA Calculator Estimated Delivery Date Method Current WG Current Estimate 09/14/23 Ultrasound #1 39w 1d Other Estimates 09/21/23 LMP (Certain) 38w 1d Vaginal Delivery Operative Information Date of Procedure: 09/07/23 Pre-Operative Diagnosis: see a/p diagnoses Post-Operative Diagnosis: same Surgery / Procedure Performed: Spontaneous Vaginal Delivery Type of Anesthesia: Local with 1% Lidocaine Special Medications: none Estimated Blood Loss: 200 Fluids Replaced: crystalloid Findings Description of Procedure: Patient began pushing and delivered the head in the HECTOR presentation. The head was delivered atraumatically . The anterior and posterior shoulders delivered without complication followed by the rest of the and the was placed on the maternal abdomen. Delayed cord clamping was employed for ap proximately 60 seconds. Cord was clamped and cut and gentle traction was applied to the cord and the placenta delivered spontaneously immediately following it was noted to be intact with three-vessel cord. The perineum and vagina were inspected and noted to have a second degree perineal laceration which was repaired in the usual fashion with 3-0 vicryl rapide. . EBL was 200 cc. Patient and tolerated delivery well. Amniotic Fluid Description: Clear Placental Delivery Description: Spontaneous Placenta Disposition: [facility] Cord Vessel Description: 3 Vessels Cord Entanglement: None Delayed Cord Clamping: Yes Post Vaginal Delivery Medications Given After Delivery: IV Pitocin Episiotomy Description: None Complication Complications: None Procedures Urinary/Genital [id number]: [id number] Vaginal Delivery [facility]
--- NOTE | 2023-09-07 17:24 | DCINST_ITS ---
Discharge Instructions Diet Discharge Diet: No restrictions Activity Discharge Activity: Return to Normal Activity, May Not Drive (while taking narcotic pain medications.) and May Shower May resume sexual activity in: 4-6 weeks Dressing / Incision Call your doctor if your incision/area has: Continuous Slow Oozing, Sudden Increased Bleeding, Increased Pain/ Swelling, Increased Redness and Foul Smelling Discharge Follow Up Care Please Follow Up With: Amalia Sanon MD When: Call [phone] to make an appointment with your doctor in 6 weeks. If you had elevated blood pressure or 4th degree laceration, you will need to be seen in 2 weeks. Test Results: Test results from this visit will be discussed in further detail at your follow- up appointment, if applicable. Discharge Plan Admission Admit Date/Time: 09/07/23 07:29 Attending Provider: Amalia Sanon Primary Care Provider: Marilin Alcaraz Discharge Orders/Prescriptions Prescriptions: No Action vit,[id number] 1 TABLET tablet 1 tab PO DAILY Referrals / Follow Up: Marilin Alcaraz, JERRELL-C [Primary Care Provider] -
[2023-09-08 00:45] VITALS: BP 100/57; PULSE 87; RESP 17; TEMP 37.1; O2SAT 100
[2023-09-08 04:00] VITALS: BP 104/64; PULSE 86; RESP 17; TEMP 36.8; O2SAT 100
[2023-09-08] MEDS: Acetaminophen 500 MG Tablet 1000 MG PO (04:11)
--- NOTE | 2023-09-08 07:53 | PCM.PN.OB ---
Subjective Subjective Patient doing well without complaints. Tolerating PO. Ambulating and voiding without difficulty. Feeding well. Denies chest pain, shortness of breath, calf pain/swelling, fevers, chills, lightheadedness. Objective Data Objective Data Vital Signs: Vital Signs Temp Pulse Resp BP Pulse Ox O2 Del Method 98.2 F 86 17 104/64 100 Room Air 09/08/23 04:00 09/08/23 04:00 09/08/23 04:00 09/08/23 04:00 09/08/23 04:00 09/08/23 04:00 Oxygen Delivery Method Room Air Weight: 180 lb 5.41 oz Body Mass Index (BMI) 26.6 Intake & Output: Intake and Output for Last 24 Hours 09/06/23 09/07/23 09/08/23 23:59 23:59 23:59 Intake Total 1464.15 / 1464.15 Output Total 200 / 200 Balance 1264.15 / 1264.15 Lab / Micro Data 09/07/23 07:50 Labs: Laboratory Results - last 24 hr 09/07/23 07:50: WBC 10.0, RBC 4.10 L, Hgb 9.9 L, Hct 31.4 L, MCV 76.6 L, MCH 24.1 L, MCHC 31.5 L, RDW Std Deviation 37.7, RDW Coeff of Néstor 13.6, Plt Count 248, MPV 10.8, Immature Gran % (Auto) 1.000 H, Neut % (Auto) 73.5 H, Lymph % (Auto) 17.2 L, Bel[place]ami % (Auto) 7.0, Eos % (Auto) 1.1, Baso % (Auto) 0.2, Absolute Neuts (auto) 7.4, Absolute Lymphs (auto) 1.73, Nucleated RBC % 0, Syphilis Total Ab Non-reactive, Blood Type O POSITIVE, Antibody Screen NEGATIVE Physical Exam Const alert and oriented x3 HEENT normocephalic Eyes PERRL Neck full ROM Resp normal respiratory effort GI soft to palpation GI Narrative: FF below U Assessment & Plan (1) Vaginal delivery: COMMENT: SM IOL factor V boy/undecided 39 (2) Factor V deficiency: COMMENT: heterozygote per patient no family hx of VTE. discussed with JV and plan for weekly nsts form 36 weeks and delivery at 39. anticoagulation only if . PLAN: Plan s/p PPD # 1 1. routine post delivery care 2. breast feeding- support given 3. rh positive 4. rubella immune 5. home today
[2023-09-08 08:10] VITALS: BP 106/74; PULSE 73; RESP 16; TEMP 36.4; O2SAT 97
[2023-09-08 12:13] VITALS: BP 130/78; PULSE 70; RESP 16; TEMP 36.5; O2SAT 98
[2023-09-08 15:49] VITALS: BP 119/80; PULSE 91; RESP 16; TEMP 36.4; O2SAT 98
--- NOTE | 2023-09-12 15:44 | NURSING ---
F/up phone call performed, pt. feeling well. Denies s+s complications. Pt. did ask about who she was supposed to reach out to for infant's circumcision-- left voicemail for Antonio today. IBCLC assured pt. that she should receive a call back, but if not to call into the unit in the next day or two to speak with NSY coordinator real estate closing coordinator.
== END 2023-09-08 17:15 | disposition home or self-care (01) | DRG 806 ==
PROVIDERS: Admitting Provider Obstetrics & Gynecology; PCP Nurse Practitioner Family; Visit Provider Obstetrics & Gynecology
DX: O99.12 Other diseases of the blood and blood-forming organs and certain disorders involving the immune mechanism complicating childbirth (principal); Z37.0 Single live birth; D68.51 Activated protein C resistance; Z87.59 Personal history of other complications of pregnancy, childbirth and the puerperium; O99.02 Anemia complicating childbirth; O70.1 Second degree perineal laceration during delivery; Z3A.38 38 weeks gestation of pregnancy
CPT/HCPCS: 59025; 59050; 85025; 86780; 86850; 86900; 86901; 99221; J7120; G0378

== ENCOUNTER 2024-06-27 17:00 | Emergency (ER) | payer OTHER, SELFPAY ==
[2024-06-27 17:01] VITALS: BP 139/95; PULSE 82; RESP 16; TEMP 37.1; O2SAT 98; BMI 19.9
--- NOTE | 2024-06-27 17:45 | ED.VIS.FEGU ---
HPI HPI - Female History of Present Illness Chief Complaint: Vag Bld, Preg PFSH PFSH Medical History History of delivery Anemia Family history of autism Home Medications ?Medication ?Instructions ?Recorded ?Last Taken ?Type sertraline 25 mg tablet (Zoloft) 25 mg PO DAILY 10/18/23 Unknown History Allergy/AdvReac Type Severity Reaction Status Date / Time amoxicillin Allergy Hives Verified 06/27/24 17:04 Penicillins (PCN) Allergy Hives Verified 06/27/24 17:04 azithromycin (From Zithromax) AdvReac Nausea Verified 06/27/24 17:04 Family History Mother Factor V deficiency Sister Factor V deficiency Surgical History History of tonsillectomy Social History adopted: No household members: significant other and children number of children: 1 current occupational status: employed 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 current occupational exposures/hazards: No pets and animals: Yes (not managing litterbox) pets and animals: cat(s) history of recent travel: No sexually active: Yes Smoking Status: Never smoker alcohol intake: never substance use type: does not use well-balanced diet: daily or most days caffeine: Yes Type: coffee Number of servings: 1 and tea Number of servings: 1 eating out: 1-3 times/week during the past year weight has: remained stable what type of physical activity do you participate in: none sharon/advent: Quaker seatbelt use: always do you feel safe at home: Yes additional social history: -[facility] EXAM Physical Exam Const Vital Signs: 06/27/24 17:01 06/27/24 19:47 06/27/24 19:55 Temperature 98.7 F 97.9 F Temperature Source Oral Pulse Rate 82 86 86 Respiratory Rate 16 18 18 Blood Pressure 139/95 H 107/77 107/77 Blood Pressure Mean 109 87 87 Pulse Ox 98 98 98 Oxygen Delivery Method Room Air Room Air MDM MDM MDM Narrative Medical decision making narrative: HISTORY OF PRESENT ILLNESS: Chief complaint: Vaginal bleeding, early 24-year-old female G3, P2 presents with vaginal bleeding. Notes she is approximately 5 weeks . She states she has had heavy vaginal bleeding and cramping since this morning. Think she can be having a miscarriage. No prior history of miscarriages. REVIEW OF SYSTEMS: Pertinent positives: Vaginal bleeding, cramping Pertinent negatives: Vomiting, fever PHYSICAL EXAM: Nursing triage notes reviewed, Vital signs reviewed Constitutional: please see [facility] HENT: MMM Eyes: Pupils equal round and reactive to light, Extraocular muscles intact Neck: No stridor, no JVD, full neck ROM Lungs: Clear to auscultation, No wheezing or rales. No increased work of breathing, no conversational dyspnea, no accessory muscle use, no nasal flaring. No respiratory distress noted Heart: Regular rate and rhythm, No murmurs, No rubs and No gallops, 2+ distal pulses (radial, femoral, posterior tibial) in all extremities Abdomen: Soft, there is no tenderness, rigidity, rebound or guarding, no obvious peritoneal signs, no palpable pulsatile abdominal masses, no auscultated abdominal bruit : No CVAT, pelvic exam deferred by patient Extremities: No edema Neuro: No new focal neurological deficits, cranial nerves II through XII intact, 5/5 strength in all present extremities. Intact sensation to light touch in all present extremities, 2+ reflexes bilateral patella tendons. Skin: No rash or lesions noted MEDICAL DECISION MAKING: Chief Complaint: please see HPI External records reviewed: Reviewed prior imaging study Factors affecting care: Factor V Leiden Social determinants of health: none History obtained from others: Significant other Consults: [facility] (Dr. Helms)? Discussed returning to her office in 1 week for repeat hCG and possible ultrasound. [facility] Narrative: The patient is initially hemodynamically stable, afebrile and nontoxic-appearing. Exam benign. Pelvic exam deferred by patient. I considered the following differential diagnosis: Miscarriage, ectopic I obtained a broad lab and imaging workup to further elucidate etiology of patient's complaints ALL IMAGES (IF OBTAINED) HAVE BEEN PERSONALLY REVIEWED AND INTERPRETED BY MYSELF. Transvaginal ultrasound showed no obvious intrauterine . No obvious ectopic CBC without leukocytosis, severe anemia, no thrombocytopenia. BMP without evidence of significant electrolyte abnormalities, no anion gap, no acute kidney injury. Patient is Rh+ Quant is 2 suggesting early or potentially possible miscarriage versus the patient never being.. No clear life-limiting etiology to be identified. Patient will require close OB follow-up for serial hCG monitoring and possible repeat imaging. Strict return precautions were discussed. The patient and/or family, caregivers express understanding. The patient and/or family, caregivers agrees with the plan. Shared decision making: I will have a discussion with the patient and or visitors regarding risk/benefits of further testing or admission. They will be made aware of of the risk/benefits inherent in this decision they will be given the opportunity to voice understanding. Total critical care time today provided was at least 0 minutes. This excludes separately billable procedures. Critical care time (if documented) is secondary to the patient having high probability of clinically significant/life threatening deterioration in the patient's condition which required my urgent intervention. Impression: 1. Vaginal bleeding 2. First trimester Dispo: Discharge home This note was generated with [employer] software. It may contain incorrect words, spelling, and punctuation that were not noted in review of the chart prior to signing. Lab Data Labs: Laboratory Results - last 24 hr 06/27/24 18:10 WBC 8.0 RBC 4.45 Hgb 12.8 Hct 37.9 MCV 85.2 MCH 28.8 MCHC 33.8 RDW Std Deviation 36.8 RDW Coeff of Néstor 11.9 Plt Count 288 MPV 9.9 Immature Gran % (Auto) 0.300 Neut % (Auto) 54.5 Lymph % (Auto) 35.4 [place] % (Auto) 7.1 Eos % (Auto) 1.9 Baso % (Auto) 0.8 Absolute Neuts (auto) 4.4 Absolute Lymphs (auto) 2.83 Nucleated RBC % 0 Sodium 137 Potassium 4.0 Chloride 103 Carbon Dioxide 22.6 Anion Gap 11 BUN 14 Creatinine 0.69 L Estim Creat Clear Calc 121.53 Est GFR (MDRD) Non-Af 124 BUN/Creatinine Ratio 20.6 H Glucose 92 Calcium 9.1 HCG, Quant 2 Blood Type O POSITIVE Radiography Diagnostic Testing: Clinical Impression(s) from Imaging Studies Obstetrics Ultrasound 06/27/24 18:02 IMPRESSION: Beta hCG is not available at the time of this interpretation. No evidence of intrauterine . This could be secondary to early . Ectopic can not be excluded. Continued trending serial beta HCG level and repeat pelvic ultrasound in 10-14 days recommended. Reading Location: [facility] Discharge Plan Triage Chief Complaint: Vag Bld, Preg ED Provider: Luis Jeffrey Dx/Rx/DC Orders Instructions: Miscarriage Threatened Prescriptions: No Action sertraline [Zoloft] 25 mg tablet 25 mg PO DAILY Primary Care Provider: Margo Leal Referrals: Elva Florez MD [Med Staff - Active Staff] - Activity Restrictions/Additional Instructions: Thank you for trusting us with your care today! Please take Tylenol (2 pills, 650 mg) every 6 hours as needed for pain and fever control. Your ultrasound did not show an obvious outside the uterus or in the uterus. This could be related to your gestational age of 5 weeks workup related to the miscarriage. You will require close outpatient [facility] follow-up for repeat lab testing repeat imaging Please return to the emergency department if your symptoms change or worsen. Please follow with your [facility] for further outpatient evaluation and management. Print Language: Somali Disposition Disposition: Home, Self Care Discharge Date/Time: 06/27/24 20:11
--- NOTE | 2024-06-27 18:02 | US_ITS ---
EXAM: US Pelvis Transvaginal CLINICAL INDICATION: VAGINAL BLEEDING, EARLY TECHNIQUE: Real-time transvaginal pelvic ultrasound with image documentation. Transvaginal imaging was used for better evaluation of the endometrium and adnexa. COMPARISON: No relevant prior studies available. FINDINGS: UTERUS/CERVIX: Cervix closed. Normal endometrial stripe thickness. No myometrial mass. The uterus measures 7.9 x 5.9 x 3.5 cm. RIGHT OVARY: Unremarkable. Normal blood flow. The right ovary measures 3.3 x 2.2 x 2.0 cm. LEFT OVARY: Unremarkable. Normal blood flow. The left ovary measures 2.7 x 1.7 x 1.4 cm. FREE FLUID: No free fluid. BLADDER: Empty bladder which cannot be evaluated with this probe. OTHER FINDINGS: Gestational sac not visualized. Yolk sac not visualized. heart tone not detected. US/Transvaginal w/Preg US IMPRESSION: Beta hCG is not available at the time of this interpretation. No evidence of i ntrauterine . This could be secondary to early . Ectopic can not be excluded. Continued trending se rial beta HCG level and repeat pelvic ultrasound in 10-14 days recommended. Reading Location: [id number]
[2024-06-27 18:32] LABS: Absolute Lymphocyte Count 2.83 X10^3/uL (0.83-4.51); Absolute Neutrophil Count 4.4 X10^3/uL (2.0-7.7); Basophil# 0.06 X10^3/uL; Basophil% 0.8 % (0-1); Eosinophil# 0.15 X10^3/uL; Eosinophils% 1.9 % (0-5); Hematocrit 37.9 % (37-47); Hemoglobin 12.8 g/dL (12.0-15.0); Lymphocyte # 2.83 X10^3/ul (0.83-4.51); Lymphocyte % 35.4 % (19-41); Mean Corp Hgb Conc 33.8 g/dL (32-36); Mean Corpuscular Hgb 28.8 pg (27.0-32.0); Mean Corpuscular Volume 85.2 fL (81-99); Mean Platelet Vol. 9.9 fl (6.2-12.0); Monocyte# 0.57 X10^3/uL; Monocyte% 7.1 % (0-10); NRBC Flagged by Analyzer 0 % (0-5); Neutrophil # 4.36 X10^3/uL (2.7-7.7); Neutrophil % 54.5 % (47-70); Platelet Count 288 K/mm3 (150-450); RBC Distribution Width CV 11.9 % (11.6-14.6); RBC Distribution Width SD 36.8 fl (35.1-43.9); Red Blood Count 4.45 M/mm3 (4.2-5.4)
[2024-06-27 18:41] LABS: Anion Gap 11 (5-15); BUN 14 mg/dL (4-19); BUN/Creat Ratio 20.6 RATIO (10-20); Calcium,Total 9.1 mg/dL (7.6-11.0); Carbon Dioxide 22.6 mmol/L (21.0-32.0); Chloride 103 mmol/L (98-108); Creatinine, Serum 0.69 mg/dL (0.70-1.20); EST Glomerular Filtration Rate 124 (>60); Estimated Creatinine Clearance 121.53 ml/min (50-250); Glucose 92 mg/dL (70-99); Sodium Level 137 mmol/L (133-145)
[2024-06-27 18:49] LABS: hCG Titer Quant., Serum 2 mIU/mL (<9 non-preg)
[2024-06-27 19:47] VITALS: BP 107/77; PULSE 86; RESP 18; O2SAT 98
[2024-06-27 19:55] VITALS: BP 107/77; PULSE 86; RESP 18; TEMP 36.6; O2SAT 98
== END 2024-06-27 20:11 | disposition home or self-care (01) ==
PROVIDERS: Emergency Provider Emergency Medicine; PCP Family Medicine; Visit Provider Emergency Medicine
DX: O20.9 Hemorrhage in early pregnancy, unspecified (principal); Z3A.01 Less than 8 weeks gestation of pregnancy
CPT/HCPCS: 76817; 80048; 84702; 85025; 86900; 86901; 99282; A4216

== ENCOUNTER → 2024-08-31 | Outpatient (CLI) | payer OTHER, SELFPAY ==
--- NOTE | 2024-08-31 16:29 | US_ITS ---
PROCEDURE: TRANSVAGINAL W/PREG US 08/31/2024 REASON FOR EXAM: DATING TECHNIQUE: TRANSVAGINAL W/PREG US COMPARISON: 06/27/2024 FINDINGS Within the uterine cavity, there is a single live IUP, approximate ultrasound age of 7 weeks and 2 days by crown-rump length. heart rate of 152 beats per minute. Small implant bleed measuring up to 0.6 cm. The right ovary measures 2 x 2 x 4 cm with a 2.7 cm corpus luteal cyst. The left ovary measures 1 x 2 x 2 cm. No pelvic free fluid. US/Transvaginal w/Preg US IMPRESSION: Single live IUP, approximate ultrasound age of 7 weeks and 2 days. Estimated d ue date by ultrasound is 04/17/2025. Reading Location: [place] [id number]
== END | disposition home or self-care (01) ==
LOC: US 16:27
PROVIDERS: PCP Family Medicine; Referring Provider Obstetrics & Gynecology; Visit Provider Obstetrics & Gynecology
DX: Z34.90 Encounter for supervision of normal pregnancy, unspecified, unspecified trimester (principal)
CPT/HCPCS: 76817

== ENCOUNTER → 2024-09-27 | Outpatient (CLI) | payer OTHER, SELFPAY ==
[2024-09-27 16:45] LABS: Hematocrit 35.8 % (37-47); Hemoglobin 12.2 g/dL (12.0-15.0); Immature Granulocytes Count 0.030 X10^3/uL (0.0-0.0); Mean Corp Hgb Conc 34.1 g/dL (32-36); Mean Corpuscular Volume 85.4 fL (81-99); Mean Platelet Vol. 10.2 fl (6.2-12.0); NRBC Flagged by Analyzer 0 % (0-5); Platelet Count 248 K/mm3 (150-450); RBC Distribution Width CV 12.0 % (11.6-14.6); RBC Distribution Width SD 37.4 fl (35.1-43.9); Red Blood Count 4.19 M/mm3 (4.2-5.4); White Blood Count 9.1 K/mm3 (4.4-11.0)
[2024-09-27 17:56] LABS: HIV Nonreactive (Nonreactive); Hepatitis B Surface Antigen Nonreactive (Nonreactive); Hepatitis C Antibody Nonreactive (Nonreactive); Syphilis Antibodies Nonreactive (Nonreactive)
[2024-10-01 21:07] LABS: Chlamydia By Nucleic Acid AMP Negative (Negative); Gonococcus By Nucleic Acid AMP Negative (Negative)
== END | disposition home or self-care (01) ==
PROVIDERS: PCP Family Medicine; Visit Provider Advanced Practice Midwife
DX: O09.90 Supervision of high risk pregnancy, unspecified, unspecified trimester (principal); Z3A.00 Weeks of gestation of pregnancy not specified; Z12.4 Encounter for screening for malignant neoplasm of cervix
CPT/HCPCS: 36415; 85025; 86703; 86762; 86780; 86803; 86850; 86900; 86901; 87086; 87088; 87340; 87491; 87591; 88175; G0145

== ENCOUNTER → 2025-01-26 | Outpatient (CLI) | payer OTHER, SELFPAY ==
--- OUTSIDE RECORDS SUMMARY | 2025-01-26 09:10 | XMS RPT_ITS | CCD ---
Author Organization [facility] Care Team Providers Care Sheet Rock Applier Name Role Phone KRISTINA Kiser Attending Provider Ungerer, PAPER HANGER. Dominga Primary Care Provider [phone] Radhar, PAPER HANGER. Dominga Referring Provider KRISTINA Kiser Attending Provider Ungerer, PAPER HANGER. Dominga Primary Care Provider Radhar, PAPER HANGER. Dominga Referring Provider Mel ALLAN, PAPER HANGER-C Iris Attending Provider Dr. Luis Jeffrey DO Emergency Provider Jennifer Leal PA-C Primary Care Provider UNGERER, DOMINGA PAPER HANGER Consulting Unavailable KIRAMILLA Attending Unavailable KIRA, MILLA E Primary Care Unavailable KIRA, MILLA E Admitting Unavailable UNGERER, DOMINGA PAPER HANGER Referring Unavailable PROVIDER, UNKNOWN Consulting Unavailable UNGERER, DOMINGA PAPER HANGER Attending Unavailable UNGERER, DOMINGA PAPER HANGER Consulting Unavailable UNGERER, DOMINGA PAPER HANGER Primary Care Unavailable UNGERER, DOMINGA PAPER HANGER Admitting Unavailable PROVIDER, UNKNOWN Consulting Unavailable AMALIA TRAYLOR MD Attending Unavailab AMALIA Rosario MD Primary Care Unavailab AMALIA Rosario MD Admitting Unavailab JENNIFER Hirsch Consulting Unavailable PROVIDER, UNKNOWN Consulting Unavailable Dr. Luis Jeffrey DO Attending Provider Fba EVANS, Dr. Holland Attending Provider [phone] Dr. Amalia Traylor MD Referring Provider Jennifer Leal PA-C Referring Provider [phone] Park Kiser CNM Attending Provider Jennifer Leal PA-C Primary Care Physician [phone] Fab EVANS, Dr. Holland Attending Physician Park Kiser CNM Attending Physician PARK KISER Attending Unavailable DOMINGA ALCARAZ Primary Care Unavailable PARK KISER Referring Unavailable LORNA ARBOLEDA Attending Unavailable DOMINGA ALCARAZ Primary Care Unavailable PARK KISER Referring Unavailable Allergies Allergy Classification Reported Allergen(s) Allergy Type Date of Onset Reaction(s) Facility (9 sources) Amoxicillin; Translations: [AMOXICILLIN] Drug Allergy 8 [facility] (8 sources) Azithromycin Drug Allergy 4 [facility] (8 sources) Penicillins Allergy to substance 4 [facility] (1 source) Amoxicillin Drug Allergy [facility] (1 source) Azithromycin Drug Allergy [facility] Medications Current Medications Medication Drug Class(es) Dates Sig (Normalized) Sig (Original) Pnv No.338-Nd-Qs2-Dha-Ep a-Fish 400 mcg-35 mg- 25 mg-5 mg tablet,chewable (3 sources) Start: 09-14-2024 Pnv No.151-Xi-He3-Dha-E pa-Fish 400 mcg-35 mg- 25 mg-5 mg tablet,chewable Active {tbl} PO September 14, 2024 12:00am Complies with drug therapy Start: 09-14-2024 Pnv No.153-Fa- Yk2-Iwa-Rot-Fish 400 mcg-35 mg- 25 mg-5 mg tablet,chewable Active {tbl} PO September 14, 2024 12:00am Vit,Slci89-Puji-Nqmxs (3 sources) Start: 10-11-2018 take 1 tablet by mouth once daily Vit,Katb49-Ogxf-Ikilp Active 1 TABLET PO DAILY October 11, 2018 12:00am Start: 10-11-2018 take 1 tablet by jeanine th once daily Vit,Dicy36-Lhbj-Lguwn Active 1 TABLET PO DAILY October 10, 2018 11:00pm Completed/Discontinued Medications Medication Drug Class(es) Dates Sig (Normalized) Sig (Original) Vit,Issa 84-Dspv-Txree 1 TABLET tablet (1 source) Start: 10-11-2018 End: 10-18-2023 Vit,Issa 10-Egti-Pxhzt 1 TABLET tablet Discontinued 1 {tbl} PO DAILY October 11, 2018 12:00am October 18, 2023 10:26am Vit,Pueh97-Htgp-Bm lic 1 TABLET tablet (4 sources) Start: 10-11-2018 End: 10-18-2023 take 1 tablet by mouth once daily Vit,Ench82-Tqvl-Otz ic 1 TABLET tablet Discontinued 1 {tbl} PO DAILY October 11, 2018 12:00am October 18, 2023 10:26am Start: 10-11-2018 End: 10-18-2023 take 1 tablet by mouth once daily Vit,Ndxv24-Uusa-Ughzt 1 TABLET tablet Discontinued 1 {tbl} PO DAILY October 11, 2018 12:00am October 18, 2023 10:26am sertraline 25 mg oral tablet (5 sources) Serotonin Reuptake Inhibitor Start: 10-18-2023 End: 09-14-2024 take 1 tablet by mouth once daily Sertraline (Zoloft) 25 mg tablet Discontinued 25 mg PO DAILY October 18, 2023 12:00am September 14, 2024 3:34pm Problems Problem Classification Problem Date Documented Date Episodic/Chronic Asthma (15 sources) Asthma; Translations: [Unspecified asthma, uncomplicated] 02-11-2023 Chronic Comment on above: environmental induce d Coagulation and hemorrhagic disorders (17 sources) Factor V deficiency; 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 discussed with JV and plan for weekly nsts form 36 weeks and delivery at 39. anticoagulation only if . Deficiency and other anemia (9 sources) Anemia; Translations: [Anemia, unspecified] 07-05-2023 Episodic Comment on above: add Fe Hemorrhage during ; abruptio placenta; placenta previa (7 sources) Subchorionic hematoma; Translations: [Other antepartum hemorrhage, unspecified trimester] 09-14-2024 Episodic Comment on above: noted on initial US Other complications of (15 sources) High risk ; Translations: [Supervision of high risk , unspecified, unspecified trimester] 03-08-2023 Episodic Comment on above: PRR, , PATRICIA 4,boy PC Saline BF Fred , PATRICIA 04/17/25, PC Edna, Evaristo, FOB not involved. PRR ( waiting on gcc ), , PATRICIA 04/17/25, PC Edna, Evaristo, FOB not involved. Other complications of (5 sources) Supervision of high risk , unspecified, unspecified trimester; Translations: [Supervision of unspecified high-risk ] 03-04-2023 Episodic Other female genital disorders (5 sources) H/O: premature delivery; Translations: [Personal history of pre-term labor] 09-08-2023 Episodic Comment on above: nl anatomy CL. revie wed PTL precautions Other and delivery including normal (20 sources) ; Translations: [Encounter for supervision of normal , unspecified, unspecified trimester] 03-04-2023 Episodic Comment on above: SM IOL factor V boy/ undecided 39 GBS neg, anatomy nl, declines genetic & carrier testing; declines AFP declined NIPT & Rouse ier testing Other screening for suspected conditions (not mental disorders or infectious disease) (13 sources) Abnormal cervical Papanicolaou smear; Translations: [Unspecified abnormal cytological findings in specimens from cervix uteri] Onset: 08-28-2024 03-11-2023 Episodic Comment on above: LISL at NOB. Repeat in one year Residual codes; unclassified (6 sources) H/O: risk factor; Translations: [Personal history of other specified conditions] 03-29-2023 Episodic Comment on above: states cats never go outside. Will have BF change litter. Offered and declines toxo lab Residual codes; unclassified (2 sources) Personal history of other specified conditions; Translations: [Other specified personal history presenting hazards to health] 03-29-2023 Episodic Results Test Name Value Interpretation Reference Range Facility Absolute lymphocyte countOrd ered By: Park Kiser on 09-27-2024 Lymphocytes Auto (Unsp spec) [#/Vol] 2.49 10*3/uL 0.83-4.51 [facility] Absolute neutrophil countOrd ered By: Park Kiser on 09-27-2024 Neutrophils (Bld) [#/Vol] 5.7 10*3/uL 2.0-7.7 [facility] Automated lymphocyte count a s percentage of total leukocytesOrdered By: Park Kiser on 09-27-2024 Lymphocytes/100 WBC Auto (Unsp spec) 27.5 % 19-41 [facility] Basophil percentageOrdered B y: Park Kiser on 09-27-2024 Basophils/100 WBC (Bld) 0.4 % 0-1 [facility] Cervical or vagninal specime n microscopic examination by cytology stain (reported asOrdered By: Park Kiser on 09-27-2024 Cytology report Cyto stain Doc (Cvx/Vag) Comment . [facility] Comment on above: The Pap smear is a s creening test designed to aid in thedetection of premalignant and malignant conditions of theuterine cervix. It is not a diagnostic procedure andshould not be used as the sole means of detecting cervicalcancer. Both false-positive and false-negative reports dooccur. Chlamydia trachomatis rRNA d etection by probe and target amplification methodOrdered By: Park Kiser on 09-27-2024 C. trachomatis rRNA SIERRA+probe Ql (Unsp spec) Negative Negative [facility] Eosinophil percentageOrdered By: Park Kiser on 09-27-2024 Eosinophils/100 WBC (Bld) 2.4 % 0-5 [facility] Erythrocyte distribution wid th ratioOrdered By: Park Kiser on 09-27-2024 Erythrocyte distribution width (RBC) [Ratio] 12.0 % 11.6-14.6 [facility] Erythrocyte distribution wid th standard deviationOrdered By: Park Kiser on 09-27-2024 Erythrocyte distribution width (RBC) [Ratio] 37.4 fl 35.1-43.9 [facility] Hematocrit Auto (Bld) [Volum e fraction]Ordered By: Park Kiser on 09-27-2024 Hematocrit (Bld) [Volume fraction] 35.8 % Low 37-47 [facility] Hemoglobin measurementOrdere d By: Park Kiser on 09-27-2024 Hemoglobin (Bld) [Mass/Vol] 12.2 g/dL 12.0-15.0 [facility] Immature granulocytes/100 WB C Auto (Bld)Ordered By: Park Kiser on 09-27-2024 Immature granulocytes/100 WBC (Bld) 0.300 % 0.0-0.9 [facility] Comment on above: IG% - Immature Granu locytes (promyelocytes, myelocytes and metamyelocytes) > 1% indicates that a LEFT SHIFT is Present. Laboratory - CytologyOrdered By: Park Kiser on 09-27-2024 Bindery Manager Cyto stain Nom (Cvx/Vag) [ID] Comment . [facility] Comment on above: Chin Morillo, Cytolog ist (ASCP) Pathologist Cyto stain Nom (Cvx/Vag) [ID] Comment . [facility] Comment on above: Lety Navas MD, P athologist Laboratory - Microbiology an d Antimicrobial susceptibilityOrdered By: Park Kiser on 09-27-2024 HBV surface Ag Ql (S) Non-Reactive Nonreactive [facility] Comment on above: Reactive: Presumptiv e evidence of HBV. Repeatedly reactive samples must be confirmed using a neutralization test ([employer] HBsAg Confirmatory Test)Non-Reactive: HBsAg not detected; does not exclude the possibility of exposure to HBV Laboratory - Miscellaneous t estsOrdered By: Park Kiser on 09-27-2024 Service comment (Unsp spec) [Interp] . . [facility] MCV (mean corpuscular volume ) determinationOrdered By: Park Kiser on 09-27-2024 MCV (RBC) [Entitic vol] 85.4 fL 81-99 [facility] Mean corpuscular hemoglobin (MCH) determinationOrdered By: Park Kiser on 09-27-2024 MCH (RBC) [Entitic mass] 29.1 pg 27.0-32.0 [facility] Mean corpuscular hemoglobin concentration (MCHC) determinationOrdered By: Park Kiser on 09-27-2024 MCHC (RBC) [Mass/Vol] 34.1 g/dL 32-36 [facility] Mean platelet volume determi nationOrdered By: Park Kiser on 09-27-2024 Platelet mean volume (Bld) [Entitic vol] 10.2 fL 6.2-12.0 [facility] Monocyte percentageOrdered B y: Park Kiser on 09-27-2024 Monocytes/100 WBC (Bld) 6.0 % 0-10 [facility] Neisseria gonorrhoeae nuclei c acid detection by amplified probe techniqueOrdered By: Park Kiser on 09-27-2024 N. gonorrhoeae DNA SIERRA+probe Ql (Unsp spec) Negative Negative [facility] Comment on above: Performed at: =[address] [id number] Director: Arminda Ulrich MD, Phone: [phone] Neutrophil percentageOrdered By: Park Kiser on 09-27-2024 Neutrophils/100 WBC (Bld) 63.4 % 47-70 [facility] No Panel InformationOrdered By: Park Kiser on 09-27-2024 Pap Smear Specimen Adequacy Comment . [facility] Comment on above: Satisfactory for raymond luation. Endocervical and/or squamous metaplasticcells (endocervical component) are present. Pathology report final diagnosis Narrative Comment . [facility] Comment on above: R87.612 HIV (1&2) Antibody Non-Reactive Nonreactive [facility] Comment on above: Non-ReactiveReactive Repeatedly reactive samples must be confirmed according to CDC recommended confirmatory algorithms. The subresults for either HIVAG or AHIV can be used as an aid in the selection of the confirmation algorithm for reactive samples.Send out specimens with Reactive results to [facility] for confirmation.Order the HIV antibody detection and differentiation: #[id number] Nucleated red blood cell per centageOrdered By: Park Kiser on 09-27-2024 Nucleated RBC/100 WBC (Bld) [Ratio] 0 % 0-5 [facility] Platelet countOrdered By: Jorge Kiser on 09-27-2024 Platelets (Bld) [#/Vol] 248 10*3/uL 150-450 [facility] RBC Auto (Bld) [#/Vol]Ordere d By: Park Kiser on 09-27-2024 RBC (Bld) [#/Vol] 4.19 10*6/uL Low 4.2-5.4 [facility] Urine cultureOrdered By: Kelton Kiser on 09-27-2024 Bacteria identified Cx Nom (U) Positive Abnormal [facility] White blood cell (WBC) count Ordered By: Park Kiser on 09-27-2024 WBC (Bld) [#/Vol] 9.1 10*3/uL 4.4-11.0 [facility] PREG SERUM QUANTon HCG QUANTITATIVE [id number] Normal [facility] Comment on above: Result Comment: Erickson frey Range: Male: <5 Female: Non: <5 1 - 7 days : 5 - 50 1 - 2 weeks: 50 - 500 2 - 3 weeks: 100 - 5000 3 - 4 weeks: 500 - 10,000 4 - 5 weeks: 1000 - 50,000 5 - 6 weeks: 10,000 - 100,000 6 - 8 weeks: 15,000 - 200,000 2 - 3 months: 10,000 - 100,000 2ND TRIMESTER 3000-50,000 3RD TRIMESTER 1000-50,000 Performed By: #### 2 [id number] #### [facility],[address] [place] [address] Absolute lymphocyte countOrd ered By: Luis Jeffrey on 06-27-2024 Lymphocytes Auto (Unsp spec) [#/Vol] 2.83 10*3/uL 0.83-4.51 [facility] Absolute neutrophil countOrd ered By: Luis Jeffrey on 06-27-2024 Neutrophils (Bld) [#/Vol] 4.4 10*3/uL 2.0-7.7 [facility] Anion gap in Serum or Plasma Ordered By: Luis Jeffrey on 06-27-2024 Anion gap [Moles/Vol] 11 mmol/L 5- [facility] Automated lymphocyte count a s percentage of total leukocytesOrdered By: Luis Jeffrey on 06-27-2024 Lymphocytes/100 WBC Auto (Unsp spec) 35.4 % 19- [facility] BUN/creatinine ratioOrdered By: Luis Jeffrey on 06-27-2024 Urea nitrogen/Creatinine [Mass ratio] 20.6 mg/mg High 10-20 [facility] Basophil percentageOrdered B y: Luis Jeffrey on 06-27-2024 Basophils/100 WBC (Bld) 0.8 % 0-1 [facility] Carbon dioxide, total [Moles /volume] in Central venous bloodOrdered By: Luis Jeffrey on 06-27-2024 CO2 [Moles/Vol] 22.6 mmol/L 21.0-32.0 [facility] Chloride assayOrdered By: valdemar Jeffrey on 06-27-2024 Chloride [Moles/Vol] 103 mmol/L 98-108 [facility] Eosinophil percentageOrdered By: Luis Jeffrey on 06-27-2024 Eosinophils/100 WBC (Bld) 1.9 % 0-5 [facility] Erythrocyte distribution wid th ratioOrdered By: Luis Jeffrey on 06-27-2024 Erythrocyte distribution width (RBC) [Ratio] 11.9 % 11.6-14.6 [facility] Erythrocyte distribution wid th standard deviationOrdered By: Luis Jeffrey on 06-27-2024 Erythrocyte distribution width (RBC) [Ratio] 36.8 fl 35.1-43.9 [facility] Glomerular filtration rate ( GFR) estimation/1.73 sq m using serum, plasma, or whole bOrdered By: Luis Jeffrey on 06-27-2024 GFR/1.73 sq M.predicted among non-blacks MDRD (S/P/Bld) [Vol rate/Area] 124 mL/min/{1.73_m2} >60 [facility] Comment on above: mL/min/1.73m2 CKD-EP I Creatinine Equation (2020) Hematocrit Auto (Bld) [Volum e fraction]Ordered By: Luis Jeffrey on 06-27-2024 Hematocrit (Bld) [Volume fraction] 37.9 % 37-47 [facility] Hemoglobin measurementOrdere d By: Luis Jeffrey on 06-27-2024 Hemoglobin (Bld) [Mass/Vol] 12.8 g/dL 12.0-15.0 [facility] Immature granulocytes/100 WB C Auto (Bld)Ordered By: Luis Jeffrey on 06-27-2024 Immature granulocytes/100 WBC (Bld) 0.300 % 0.0-0.9 [facility] Comment on above: IG% - Immature Granu locytes (promyelocytes, myelocytes and metamyelocytes) > 1% indicates that a LEFT SHIFT is Present. MCV (mean corpuscular volume ) determinationOrdered By: Luis Jeffrey on 06-27-2024 MCV (RBC) [Entitic vol] 85.2 fL 81-99 [facility] Mean corpuscular hemoglobin (MCH) determinationOrdered By: Luis Jeffrey on 06-27-2024 MCH (RBC) [Entitic mass] 28.8 pg 27.0-32.0 [facility] Mean corpuscular hemoglobin concentration (MCHC) determinationOrdered By: Luis Jeffrey on 06-27-2024 MCHC (RBC) [Mass/Vol] 33.8 g/dL 32-36 [facility] Mean platelet volume determi nationOrdered By: Luis Jeffrey on 06-27-2024 Platelet mean volume (Bld) [Entitic vol] 9.9 fL 6.2-12.0 [facility] Monocyte percentageOrdered B y: Luis Jeffrey on 06-27-2024 Monocytes/100 WBC (Bld) 7.1 % 0-10 [facility] Neutrophil percentageOrdered By: Luis Jeffrey on 06-27-2024 Neutrophils/100 WBC (Bld) 54.5 % 47-70 [facility] Nucleated red blood cell per centageOrdered By: Luis Jeffrey on 06-27-2024 Nucleated RBC/100 WBC (Bld) [Ratio] 0 % 0-5 [facility] Platelet countOrdered By: Adia Jeffrey on 06-27-2024 Platelets (Bld) [#/Vol] 288 10*3/uL 150-450 [facility] Potassium measurement (mass/ volume)Ordered By: Luis Jeffrey on 06-27-2024 Potassium (Unsp spec) [Mass/Vol] 4.0 mmol/L 3.3-5.1 [facility] RBC Auto (Bld) [#/Vol]Ordere d By: Luis Jeffrey on 06-27-2024 RBC (Bld) [#/Vol] 4.45 10*6/uL 4.2-5.4 [facility] Serum creatinine measurement (mass/volume)Ordered By: Luis Jeffrey on 06-27-2024 Creatinine [Mass/Vol] 0.69 mg/dL Low 0.70-1.20 [facility] Serum glucose measurement (m ass/volume)Ordered By: Luis Jeffrey on 06-27-2024 Glucose [Mass/Vol] 92 mg/dL 70-99 [facility] Serum human chorionic gonado tropin detection for pregnancyOrdered By: Luis Jeffrey on 06-27-2024 HCG ( test) Ql 2 mIU/mL <9 [facility] Comment on above: Gestational Age0.2-1 Week: 5-50 mIU/mL1-2 Weeks: 50-500 mIU/mL2-3 Weeks: 100-5000 mIU/mL3-4 Weeks: 500-10,000 mIU/mL4-5 Weeks:1000-50,000 mIU/mL5-6 Weeks: 10,000-100,000 mIU/mL6-8 Weeks: 15,000-200,000 mIU/mL2-3 Months:10,000-100,000 mIU/mL Serum or plasma calcium haseeb urement (mass/volume)Ordered By: Luis Jeffrey on 06-27-2024 Calcium [Mass/Vol] 9.1 mg/dL 7.6-11.0 [facility] Serum or plasma urea nitroge n measurement (mass/volume)Ordered By: Luis Jeffrey on 06-27-2024 Urea nitrogen [Mass/Vol] 14 mg/dL 4-19 [facility] Sodium levelOrdered By: Acacia Jeffrey on 06-27-2024 Sodium [Moles/Vol] 137 mmol/L 133-145 [facility] White blood cell (WBC) count Ordered By: Luis Jeffrey on 06-27-2024 WBC (Bld) [#/Vol] 8.0 10*3/uL 4.4-11.[address] [facility] [address] NECK W/O CONTRASTon 10-20 CT NECK W/O CONTRAST [place] [address] Patient: GLADYS RING Phone#: : 2000 Age: 23 Gender: F Pt. Type: ER Account: [id number] Location: 2 Ordering: MILLA MALONE Exam Date: 10/21/2023/14:31 Family Phys: DOMINGA ALCARAZ Charge Code: 527135 Physician: Lamb Order #: [id number] Dose#: [id number] PROCEDURE: CT NECK WITHOUT CONTRAST COMPARISON: [facility], CT, NECK WITH CONTRAST, 12/25/2020, 13:26. INDICATIONS: Trauma. TECHNIQUE: CT images were created without intravenous contrast material. All CT scans at this facility use dose modulation, iterative reconstruction, and/or weight based dosing when appropriate to reduce radiation dose to as low as reasonably achievable. IV CONTRAST: No IV contrast used,0ml TOTAL DOSE: 4.80 CTDIvol(mGy) FINDINGS: Evaluation of the soft tissues is limited in the absence of intravenous contrast. NASOPHARYNX: Symmetric in contour ORAL CAVITY: Symmetric in soft tissues. OROPHARYNX: Airway is patent. HYPOPHARYNX: Airways patent LARYNX: Normal. The vocal cords are symmetric and without mass. SINUSES: Mucous retention cysts in the left maxillary sinus. NECK GLANDS: Normal. The parotid, submandibular, and thyroid glands are unremarkable. LYMPH NODES: Limited evaluation for adenopathy in the absence of contrast though none identified. SKULL BASE: Normal. Foramina are symmetric without bony erosion. VASCULATURE: Not evaluated in the absence of contrast BONES: Normal. No significant osseous lesions. OTHER: Normal. No additional imaging findings. CONCLUSION: 1. Within the limits of a noncontrast exam no appreciable acute abnormality. Dictated by: Raymond Anaya MD on 10/21/2023 at 14:45 Approved by: Raymond Anaya MD on 10/21/2023 at 14:53 Normal [facility] Laboratory - Chemistry and C hemistry - challengeon 04-26-2023 Glucose Ql (U) Negative [facility] Laboratory - Urinalysison Protein Ql (U) Negative [facility] Laboratory - Chemistry and C hemistry - challengeon 03-29-2023 Glucose Ql (U) Negative [facility] Laboratory - Urinalysison Protein Ql (U) Negative [facility] Absolute lymphocyte countOrd ered By: Park Kiser on 03-04-2023 Lymphocytes Auto (Unsp spec) [#/Vol] 2.58 10*3/uL 0.83-4.51 [facility] Automated lymphocyte count a s percentage of total leukocytesOrdered By: Park Kiser on 03-04-2023 Lymphocytes/100 WBC Auto (Unsp spec) 22.2 % 19-41 [facility] Basophil percentageOrdered B y: Park Kiser on 03-04-2023 Basophils/100 WBC (Bld) 0.3 % 0-1 [facility] Eosinophils/100 WBC (Bld) 1.7 % 0-5 [facility] Hemoglobin (Bld) [Mass/Vol] 13.1 g/dL 12.0-15.0 [facility] Monocytes/100 WBC (Bld) 5.1 % 0-10 [facility] Neutrophils (Bld) [#/Vol] 8.2 10*3/uL 2.0-7.7 [facility] Neutrophils/100 WBC (Bld) 70.4 % 47-70 [facility] WBC (Bld) [#/Vol] 11.6 10*3/uL 4.4-11.0 [facility] Cervical or vagninal specime n microscopic examination by cytology stain (reported asOrdered By: Park Kiser on 03-04-2023 Cytology report Cyto stain Doc (Cvx/Vag) Comment . [facility] Comment on above: The Pap smear is a s creening test designed to aid in thedetection of premalignant and malignant conditions of theuterine cervix. It is not a diagnostic procedure andshould not be used as the sole means of detecting cervicalcancer. Both false-positive and false-negative reports dooccur. Chlamydia trachomatis rRNA d etection by probe and target amplification methodOrdered By: Park Kiser on 03-04-2023 C. trachomatis rRNA SIERRA+probe Ql (Unsp spec) Negative Negative [facility] Culture, urineOrdered By: Jorge Kiser on 03-04-2023 Bacteria identified Cx Nom (U) Culture exhibits no growth. [facility] Bacteria identified Cx Nom (U) Culture exhibits no growth. [facility] Determination of erythrocyte mean corpuscular volume (MCV)Ordered By: Park Kiser on 03-04-2023 MCV (RBC) [Entitic vol] 85.6 fL 81-99 [facility] Erythrocyte distribution wid th ratioOrdered By: Park Kiser on 03-04-2023 Erythrocyte distribution width (RBC) [Ratio] 11.6 % 11.6-14.6 [facility] Erythrocyte distribution wid th standard deviationOrdered By: Park Kiser on 03-04-2023 Erythrocyte distribution width (RBC) [Entitic vol] 36.0 fL 35.1-43.9 [facility] HIV 1 and HIV-2 antibody ass ay with HIV-1 p24 antigen detectionOrdered By: Park Kiser on 03-04-2023 HIV 1+2 Ab+HIV1 p24 Ag IA Ql Non-Reactive Nonreactive [facility] Hematocrit Auto (Bld) [Volum e fraction]Ordered By: Park Kiser on 03-04-2023 Hematocrit (Bld) [Volume fraction] 37.3 % 37-47 [facility] Immature granulocytes/100 WB C Auto (Bld)Ordered By: Park Kiser on 03-04-2023 Immature granulocytes/100 WBC (Bld) 0.300 % 0.0-0.9 [facility] Comment on above: IG% - Immature Granu locytes (promyelocytes, myelocytes and metamyelocytes) > 1% indicates that a LEFT SHIFT is Present. Laboratory - CytologyOrdered By: Park Kiser on 03-04-2023 Bindery Manager Cyto stain Nom (Cvx/Vag) [ID] Comment . [facility] Comment on above: Dl Kowalski , Mica Inspector (ASCP) Pathologist Cyto stain Nom (Cvx/Vag) [ID] Comment . [facility] Comment on above: Arminda Ulrich MD, Pathologist Recommended follow-up Cyto stain Nom (Cvx/Vag) Comment . [facility] Comment on above: Suggest follow up as clinically appropriate. Laboratory - Hematology and Cell countsOrdered By: Park Kiser on 03-04-2023 MCH (RBC) [Entitic mass] 30.0 pg 27.0-32.0 [facility] MCHC (RBC) [Mass/Vol] 35.1 g/dL 32-36 [facility] Nucleated RBC/100 WBC (Bld) [Ratio] 0 % 0-5 [facility] Platelets (Bld) [#/Vol] 278 10*3/uL 150-450 [facility] Laboratory - Microbiology an d Antimicrobial susceptibilityOrdered By: Park Kiser on 03-04-2023 N. gonorrhoeae DNA SIERRA+probe Ql (Unsp spec) Negative Negative [facility] Comment on above: Performed at: =G - [facility] [address] [id number] Director: Arminda Ulrich MD, Phone: [phone] Laboratory - Miscellaneous t estsOrdered By: Park Kiser on 03-04-2023 Service comment (Unsp spec) [Interp] . . [facility] No Panel InformationOrdered By: Park Kiser on 03-04-2023 Human Papillomavirus Screen Comment . [facility] Comment on above: The HPV DNA reflex c riteria were not met with this specimenresult therefore, no HPV testing was performed.Performed at: WB - [facility] [address] [id number] Director: Arminda Ulrich MD, Phone: [phone] Pathology report final diagnosis Narrative Comment . [facility] Comment on above: R87.612 Hepatitis B Surface Antigen Non-Reactive Nonreactive [facility] Hepatitis C Antibody Non-Reactive Nonreactive [facility] Comment on above: Non Reactive: < 0.8 Equivocal: >/= 0.8 to < 1.0 Reactive: >/= 1.0The CDC recommends that a reactive/equivocal HCV antibody result be followed up by the HCV Nucleic Acid Amplificationtest (576664) Rubella IgG Antibody Reactive Nonreactive [facility] Comment on above: Antibody Results Int erpretation of Immune Status Non Reactive Presumed Non-Immune Equivocal Equivocal Reactive Presumed Immune Platelet mean volume Torito-Ec ker (Bld) [Entitic vol]Ordered By: Park Kiser on 03-04-2023 Platelet mean volume (Bld) [Entitic vol] 9.9 fL 6.2-12.0 [facility] RBC Auto (Bld) [#/Vol]Ordere d By: Park Kiser on 03-04-2023 RBC (Bld) [#/Vol] 4.36 10*6/uL 4.2-5.4 [facility] Serum Treponema species anti body detectionOrdered By: Park Kiser on 03-04-2023 Treponema sp Ab Ql (S) Non-Reactive [facility] Thin prep Papanicolaou smear with manual screeningOrdered By: Park Kiser on 03-04-2023 Thin prep Papanicolaou smear with manual screening Comment . [facility] Comment on above: EPITHELIAL CELL ABNO RMALITY.LOW GRADE SQUAMOUS INTRAEPITHELIAL LESION (LSIL). This liquid based Th inPrep(R) pap test was screened withthe use of an image guided system. CBC (INCLUDES DIFF/PLT)on Basophils (Bld) [#/Vol] 0.039 10*3/uL Normal 0-200 [facility] Comment on above: Performed By: #### 1 0231, 6399 #### [facility] of [address], [address] [place] [address] Envelope Fold Operator: Carlos Juarez MD Basophils/100 WBC (Bld) 0.7 % Normal [facility] Comment on above: Performed By: #### 1 0231, 6399 #### [facility] [place] [address] Envelope Fold Operator: Carlos Juarez MD Eosinophils (Bld) [#/Vol] 0.129 10*3/uL Normal 15-500 [facility] Comment on above: Performed By: #### 1 0231, 6399 #### [facility] [place] [address] Envelope Fold Operator: Carlos Juarez MD Eosinophils/100 WBC (Bld) 2.3 % Normal [facility] Comment on above: Performed By: #### 1 0231, 6399 #### [facility] [place] [address] Envelope Fold Operator: Carlos Juarez MD Erythrocyte distribution width (RBC) [Ratio] 12.0 % Normal 11.0-15.0 [facility] Comment on above: Performed By: #### 1 0231, 6399 #### [facility] [place] [address] Envelope Fold Operator: Carlos Juarez MD Hematocrit (Bld) [Volume fraction] 40.3 % Normal 35.0-45.0 [facility] Comment on above: Performed By: #### 1 0231, 6399 #### [facility] [place] [address] Envelope Fold Operator: Carlos Juarez MD Hemoglobin (Bld) [Mass/Vol] 13.7 g/dL Normal 11.7-15.5 [facility] Comment on above: Performed By: #### 1 1, 6399 #### [facility] of [place] [address] Envelope Fold Operator: Carlos Juarez MD Lymphocytes (Bld) [#/Vol] 2.475 10*3/uL Normal 850-3900 [facility] Comment on above: Performed By: #### 1 230, 6399 #### [facility] of [place] [address] Envelope Fold Operator: Carlos Juarez MD Lymphocytes/100 WBC (Bld) 44.2 % Normal [facility] Comment on above: Performed By: #### 1 230, 6399 #### [facility] of [place] [address] Envelope Fold Operator: Carlos Juarez MD MCH (RBC) [Entitic mass] 30.0 pg Normal 27.0-33.0 [facility] Comment on above: Performed By: #### 1 230, 6399 #### [facility] of [place] [address] Envelope Fold Operator: Carlos Juarez MD MCHC (RBC) [Mass/Vol] 34.0 g/dL Normal 32.0-36.[address] [facility] Comment on above: Performed By: #### 1 230, 6399 #### [facility] of [place] [address] Envelope Fold Operator: Carlos Juarez MD MCV (RBC) [Entitic vol] 88.4 fL Normal 80.0-100.0 [facility] Comment on above: Performed By: #### 1 230, 6399 #### [facility] of [place] [address] Envelope Fold Operator: Carlos Juarez MD Monocytes (Bld) [#/Vol] 0.342 10*3/uL Normal 200-950 [facility] Comment on above: Performed By: #### 1 0231, 6399 #### [facility] of [address], [address] [place] [address] Envelope Fold Operator: Carlos Juarez MD Monocytes/100 WBC (Bld) 6.1 % Normal [facility] Comment on above: Performed By: #### 1 0231, 6399 #### [facility] of [address], [address] [place] [address] Envelope Fold Operator: Carlos Juarez MD Neutrophils (Bld) [#/Vol] 2.615 10*3/uL Normal 9257-2813 [facility] Comment on above: Performed By: #### 1 0231, 6399 #### [facility] of [place] [address] Envelope Fold Operator: Carlos Juarez MD Neutrophils/100 WBC (Bld) 46.7 % Normal [facility] Comment on above: Performed By: #### 1 0231, 6399 #### [facility] of [place] [address] Envelope Fold Operator: Carlos Juarez MD Platelet mean volume (Bld) [Entitic vol] 11.1 fL Normal 7.5-12.5 [facility] Comment on above: Performed By: #### 1 0231, 6399 #### [facility] of [place] [address] Envelope Fold Operator: Carlos Juarez MD Platelets (Bld) [#/Vol] 267 10*3/uL Normal 140-400 [facility] Comment on above: Performed By: #### 1 0231, 6399 #### [facility] of [place] [address] Envelope Fold Operator: Carlos Juarez MD RBC (Bld) [#/Vol] 4.56 10*6/uL Normal 3.80-5.10 [facility] Comment on above: Performed By: #### 1 0231, 6399 #### [facility] of [place] [address] [place] [address] Envelope Fold Operator: Carlos Juarez MD WBC (Bld) [#/Vol] 5.6 10*3/uL Normal 3.8-10.8 [facility] Comment on above: Performed By: #### 1 0231, 6399 #### [facility] of [place] [address] Envelope Fold Operator: Carlos Juarez MD [facility] 12-18-2020 Albumin [Mass/Vol] 4.5 g/dL Normal 3.6-5.1 [facility] Comment on above: Performed By: #### 1 0231, 6399 #### [facility] of [place] [address] Envelope Fold Operator: Carlos Juarez MD Albumin/Globulin [Mass ratio] 1.9 {ratio} Normal 1.0-2.5 [facility] Comment on above: Performed By: #### 1 0231, 6399 #### [facility] of [place] [address] Envelope Fold Operator: Carlos Juarez MD ALP [Catalytic activity/Vol] 45 U/L Normal 31-125 [facility] Comment on above: Performed By: #### 1 0231, 6399 #### [facility] of [place] [address] Envelope Fold Operator: Carlos Juarez MD ALT [Catalytic activity/Vol] 8 U/L Normal 6-29 [facility] Comment on above: Performed By: #### 1 0231, 6399 #### [facility] of [place] [address] Envelope Fold Operator: Carlos Juarez MD AST [Catalytic activity/Vol] 12 U/L Normal 10-30 [facility] Comment on above: Performed By: #### 1 0231, 6399 #### [facility] of [place] [address] Envelope Fold Operator: Carlos Juarez MD Bilirubin [Mass/Vol] 0.5 mg/dL Normal 0.2-1.2 [facility] Comment on above: Performed By: #### 1 0231, 6399 #### [facility] of [address], [address] [place] [address] Envelope Fold Operator: Carlos Juarez MD BUN/CREATININE RATIO NOT APPLICABLE Normal 6-22 [facility] Comment on above: Performed By: #### 1 0231, 6399 #### [facility] of [address], [address] [place] [address] Envelope Fold Operator: Carlos Juarez MD Calcium [Mass/Vol] 9.6 mg/dL Normal 8.6-10.2 [facility] Comment on above: Performed By: #### 1 0231, 6399 #### [facility] of [address], [address] [place] [address] Envelope Fold Operator: Carlos Juarez MD Chloride [Moles/Vol] 107 mmol/L Normal 98-110 [facility] Comment on above: Performed By: #### 1 0231, 6399 #### [facility] of [address], [address] [place] [address] Envelope Fold Operator: Carlos Juarez MD CO2 [Moles/Vol] 24 mmol/L Normal 20-32 [facility] Comment on above: Performed By: #### 1 0231, 6399 #### [facility] of [address], [address] [place] [address] Envelope Fold Operator: Carlos Juarez MD Creatinine [Mass/Vol] 0.84 mg/dL Normal 0.50-1.10 [facility] Comment on above: Performed By: #### 1 0231, 6399 #### [facility] of [address], [address] [place] [address] Envelope Fold Operator: Carlos Juarez MD eGFR NON-AFR. SOUTH AFR[place] 100 mL/min/1.73m2 Normal > OR = 60 [facility] Comment on above: Performed By: #### 1 0231, 6399 #### [facility] of [address], [address] [place] [address] Envelope Fold Operator: Carlos Juarez MD GFR/1.73 sq M.predicted among blacks MDRD (S/P/Bld) [Vol rate/Area] 116 mL/min/{1.73_m2} Normal > OR = 60 [facility] Comment on above: Performed By: #### 1 0231, 6399 #### [facility] of [address], [address] [place] [address] Envelope Fold Operator: Carlos Juarez MD Globulin (S) [Mass/Vol] 2.4 g/dL Normal 1.9-3.7 [facility] Comment on above: Performed By: #### 1 0231, 6399 #### [facility] of [address], [address] [place] [address] Envelope Fold Operator: Carlos Juarez MD Glucose [Mass/Vol] 90 mg/dL Normal 65-99 [facility] Comment on above: Result Comment: Fasting reference interval Performed By: #### 1 0231, 6399 #### [facility] of [address], [address] [place] [address] Envelope Fold Operator: Carlos Juarez MD Potassium [Moles/Vol] 4.4 mmol/L Normal 3.5-5.[address] [facility] Comment on above: Performed By: #### 1 0231, 6399 #### [facility] [place] [address] Envelope Fold Operator: Carlos Juarez MD Protein [Mass/Vol] 6.9 g/dL Normal 6.1-8.1 [facility] Comment on above: Performed By: #### 1 0231, 6399 #### [facility] of [address], [address] [place] [address] Envelope Fold Operator: Carlos Juarez MD Sodium [Moles/Vol] 138 mmol/L Normal 135-146 [facility] Comment on above: Performed By: #### 1 0231, 6399 #### [facility] of [place] [address] Envelope Fold Operator: Carlos Juarez MD Urea nitrogen [Mass/Vol] 12 mg/dL Normal 7-25 [facility] Comment on above: Performed By: #### 1 0231, 6399 #### [facility] [address], [address] [place], [place] [id number] Envelope Fold Operator: Carlos Juarez MD HETEROPHILE, MONO SCREENon 1 02-18-2020 HETEROPHILE, MONO SCREEN Negative Normal NEGATIVE [facility] Comment on above: Performed By: #### 1 0231, 6399 #### [facility] [address] [place] [address], [address] [place] [id number] Envelope Fold Operator: Carlos Juarez MD Vital Signs Date Time Vital Sign Value Performing Clinician Catalino estes 10-31-2024 16:09-0400 Body height 175.26 cm [employer] Work Phone: [facility] 10-31-2024 16:08-0400 Body mass index (BMI) [Ratio] 22.3 kg/m2 [employer] Work Phone: [facility] 10-31-2024 16:08-0400 Body weight 68.57 kg [employer] Work Phone: [facility] 10-31-2024 16:08-0400 Diastolic blood pressure 75 mm[Hg] [employer] Work Phone: [facility] 10-31-2024 16:08-0400 Systolic blood pressure 120 mm[Hg] [employer] Work Phone: [facility] 09-27-2024 15:24-0400 Body height 175.[address] Luis Jeffrey DO Work Phone: [facility] 09-27-2024 15:24-0400 Body mass index (BMI) [Ratio] 22.6 kg/m2 Dr. Luis Jeffrey DO Work Phone: [facility] 09-27-2024 15:24-0400 Body weight 69.[address] Luis Jeffrey DO Work Phone: 3(532)026-519646 [place] [address] 09-27-2024 15:24-0400 Diastolic blood pressure 74 mm[Hg] Dr. Luis Jeffrey DO Work Phone: 3(480)701-588346 [place] [address] 09-27-2024 15:24-0400 Systolic blood pressure 136 mm[Hg] Dr. Luis Jeffrey DO Work Phone: 1(748)650-718746 [place] [address] 06-27-2024 19:55-0400 Body temperature 97.9 [degF] Dr. Luis Jeffrey DO Work Phone: 1(926)426-283746 [place] [address] 06-27-2024 19:55-0400 Diastolic blood pressure 77 mm[Hg] Dr. Luis Jeffrey DO Work Phone: 1(011)184-086446 [place] [address] 06-27-2024 19:55-0400 Heart rate 86 /min Dr. Luis Jeffrey DO Work Phone: 4(245)808-129546 [place] [address] 06-27-2024 19:55-0400 Respiratory rate 18 /min Dr. Luis Jeffrey DO Work Phone: 4(774)902-540046 [place] [address] 06-27-2024 19:55-0400 SaO2% (BldA) [Mass fraction] 98 % Dr. Luis Jeffrey DO Work Phone: 5(982)855-737046 [place] [address] 06-27-2024 19:55-0400 Systolic blood pressure 107 mm[Hg] Dr. Luis Jeffrey DO Work Phone: 7(053)312-746646 [place] [address] 06-27-2024 17:01-0400 Body height 175.[address] Luis Jeffrey DO Work Phone: 6(195)943-107346 [place] [address] 06-27-2024 17:01-0400 Body mass index (BMI) [Ratio] 19.9 kg/m2 Dr. Luis Jeffrey DO Work Phone: 7(694)625-522246 [place] [address] 06-27-2024 17:01-0400 Body weight 61.[address] Luis Jeffrey DO Work Phone: 6(058)384-795546 [place] [address] 04-26-2023 15:45-0400 Body height 175.26 cm PAPER HANGER. Dominga Ungerer Work Phone: [facility] 04-26-2023 15:45-0400 Body mass index (BMI) [Ratio] 22.3 kg/m2 PAPER HANGER. Dominga Ungerer Work Phone: [facility] 04-26-2023 15:45-0400 Body weight 68.49 kg PAPER HANGER. Dominga Ungerer Work Phone: [facility] 04-26-2023 15:45-0400 Diastolic blood pressure 72 mm[Hg] PAPER HANGER. Dominga Ungerer Work Phone: [facility] 04-26-2023 15:45-0400 Systolic blood pressure 118 mm[Hg] PAPER HANGER. Dominga Ungerer Work Phone: [facility] 03-29-2023 13:57-0500 Body mass index (BMI) [Ratio] 21.4 kg/m2 PAPER HANGER. Dominga Ungerer Work Phone: [facility] 03-29-2023 13:57-0500 Body weight 65.77 kg PAPER HANGER. Dominga Ungerer Work Phone: [facility] 03-29-2023 13:57-0500 Diastolic blood pressure 82 mm[Hg] PAPER HANGER. Dominga Ungerer Work Phone: [facility] 03-29-2023 13:57-0500 Systolic blood pressure 130 mm[Hg] PAPER HANGER. Dominga Ungerer Work Phone: [facility] 03-04-2023 14:14-0500 Body height 175.26 cm PAPER HANGER. Dominga Ungerer Work Phone: [facility] 03-04-2023 14:14-0500 Body mass index (BMI) [Ratio] 21.2 kg/m2 PAPER HANGER. Dominga Ungerer Work Phone: [facility] 03-04-2023 14:14-0500 Body weight 65.43 kg PAPER HANGER. Dominga Ungerer Work Phone: [facility] 03-04-2023 14:14-0500 Diastolic blood pressure 79 mm[Hg] PAPER HANGER. Dominga Alcaraz Work Phone: [facility] 03-04-2023 14:14-0500 Systolic blood pressure 120 mm[Hg] PAPER HANGER. Dominga Alcaraz Work Phone: [facility] Encounters Encounter Date Encounter Type Care Provider Facility Start: 12-13-2024 End: 12-13-2024 ambulatory PARK KISER [facility] Start: 11-19-2024 End: 11-19-2024 ambulatory LORNA ARBOLEDA [facility] Start: 10-31-2024 End: 10-31-2024 ambulatory [facility] Work Phone: -[facility] Start: 10-31-2024 End: 10-31-[address] Amalia Traylor MD -[facility] Work Phone: Start: 09-27-2024 End: 09-27-[address] Luis Jeffrey DO Work Phone: -[facility] Start: 09-27-2024 End: 09-27-2024 Patient encounter procedure Park Kiser CNM -[facility] Work Phone: Start: 08-31-2024 End: 08-31-[address] Luis Jeffrey DO Work Phone: -Ultrasound [facility] Start: 08-31-2024 End: 08-31-[address] Amalia Traylor MD -Ultrasound [facility] Work Phone: Start: 08-28-2024 End: 08-28-2024 ambulatory AMALIA TRAYLOR [facility] Start: 06-27-2024 End: 06-27-2024 Emergency department patient visit Dr. Luis Jeffrey DO Work Phone: -Emergency Department Work Phone: Start: 10-21-2023 End: 10-21-2023 Emergency department patient visit DOMINGA ALCARAZ [facility] Start: 05-03-2023 End: 05-03-2023 ambulatory PAPER HANGER. Dominga Dawsonrao Work Phone: [facility] Work Phone: Start: 05-03-2023 End: 05-03-2023 Patient encounter procedure PAPER HANGER. Dominga Alcaraz Work Phone: [facility]-Ultrasound, [facility] Work Phone: Start: 04-26-2023 End: 04-26-2023 Patient encounter procedure PAPER HANGER. Dominga Alcaraz Work Phone: [facility] Work Phone: Start: 03-29-2023 End: 03-29-2023 Patient encounter procedure PAPER HANGER. Dominga Alcaraz Work Phone: [facility] Work Phone: Start: 03-15-2023 End: 03-15-2023 ambulatory PAPER HANGER. Domingajc Alcaraz Work Phone: [facility] Work Phone: Start: 03-15-2023 End: 03-15-2023 Patient encounter procedure PAPER HANGER. Dominga Alcaraz Work Phone: [facility] Work Phone: Start: 03-04-2023 End: 03-04-2023 ambulatory PAPER HANGER. Dominga Alcaraz Work Phone: [facility] Work Phone: Start: 03-04-2023 End: 03-04-2023 Patient encounter procedure PAPER HANGER. Dominga Alcaraz Work Phone: [facility] Work Phone: Procedures Date Procedure Procedure Detail Performing Clinician Start: 09-27-2024 Liquid based cervica l cytology screening Dr. Luis Jeffrey DO Work Phone: Comment on above: EPITHELIAL CELL ABNO RMALITY.LOW GRADE SQUAMOUS INTRAEPITHELIAL LESION (LSIL). This liquid based Th inPrep(R) pap test was screened withthe use of an image guided system. The HPV DNA reflex c riteria were not met with this specimenresult therefore, no HPV testing was performed.Performed at: [address] [id number] Director: Arminda Ulrich MD, Phone: [phone] Start: 09-27-2024 Hepatitis C antibody measurement Dr. Luis Jeffrey DO Work Phone: Comment on above: Reactive: Presumptiv e evidence of antibodies to HCV. Follow CDC recommendations for supplemental testing.Non-Reactive: Antibodies to HCV were not detected; does not exclude the possibility of exposure to HCVReactive Results are presumptive evidence of antibodies to HCV. Follow CDC recommendations for supplemental testing.Order confirmation testing: HCV Quant by PCR testing - HCVPCR lc#[id number] Non Reactive: < 0.8 Equivocal: >/= 0.8 to < 1.0 Reactive: >/= 1.0The CDC requires that a reactive/equivocal HCV antibody result be sent out for confirmation. HCV Quant by PCR testing. Start: 09-27-[address] Luis Jeffrey DO Work Phone: Comment on above: Antibody Result: Int erpretationNon-Reactive: Non- ImmuneReactive: ImmuneThe following results were obtained with the [employer] Rubella IgG assay. Results from assays of other manufacturers cannot be used interchangeably. Start: 09-27-2024 Serologic test for syphilis Dr. Luis Jeffrey DO Work Phone: Start: 09-27-[address] Jeremi Jeffrey DO Work Phone: Start: 08-31-[address] Trans[address] ic ultrasonography Dr. Luis Jeffrey DO Work Phone: Start: 06-27-[address] Luis Jeffrey DO Work Phone: Start: 06-27-[address]ography Dr[address] Luis Jeffrey DO Work Phone: Start: 05-03-2023 Ultrasonography in f irst trimester PAPER HANGER. Dominga Alcaraz Work Phone: Start: 03-15-2023 Ultrasound scan - obstetric PAPER HANGER. Dominga Alcaraz Work Phone: Start: 03-04-2023 Urine culture PAPER HANGER. Alyssa Alcaraz Work Phone: Plan of Treatment Date Care Activity Detail Author Start: 09-27-2024 CBC W Auto Differential panel - Blood [facility] Start: 09-27-2024 Hepatitis C antibody measurement [facility] Start: 09-27-2024 Rubella IgG measurement [facility] Start: 09-27-2024 Serologic test for syphilis [facility] Start: 09-27-2024 [facility] Start: 03-04-2023 Liquid based cervical cytology screening [facility] Chlamydia deoxyribon ucleic acid detection [facility] Erythrocyte mean corpuscular volume determination [facility] Hematocrit [Volume Fraction] of Blood [facility] Hemoglobin [Mass/vol ume] in Blood [facility] Hepatitis B virus rosales rface Ag [Presence] in Serum [facility] Leukocytes [#/volume ] in Blood [facility] Liquid based cervica l cytology screening [facility] Mean corpuscular hem oglobin concentration determination [facility] Mean corpuscular hem oglobin determination [facility] Neutrophil count [facility] Neutrophil percent differential count [facility] Path report.final Dx Spec [facility] Patient Education Miscarriage Th reatened [facility] Work Phone: Patient referral [facility] Work Phone: Platelets [#/volume] in Blood [facility] Red blood cell count [facility] Red cell distributio n width determination [facility] Ultrasound scan - obstetric [facility] Payers Date Payer Category Payer Unknown [facility] [id number] 2000 Unknown [id number] 2000 Unknown [id number] 2000 Unknown [id number] 2000 Unknown [id number] 2000 Unknown [id number] Self-pay SELF PAY INSURANCE [id number] Unknown [id number] Unknown [employer]AMOUNT ADV VIKASH *DO NOT US E* [id number] Unknown [id number] Social History Date Type Detail Facility Start: 03-04-2023 End: 04-26-2023 Tobacco smoking status NHIS Unknown if ever smoked [facility] Start: 2000 Sex Assigned At Female [facility] Patient currentl y [facility] Start: 06-27-2024 End: 09-14-2024 Tobacco smoking status NHIS Never smoked tobacco (finding) [facility] Clinical Notes 03-04-2023 to 10-31-2024 Note Date & Type Note Facility 10-31-2024 Progress note [facility] 10-31-2024 Progress note Note Date/Time October 31, 2024 4:18pm [facility] [address], [address] [place] [address] OFFICE VISIT Date of Service: 10/31/24 MR#: [id number] Acct: [id number] Name: GLADYS RING Rep #: [id number] : 2000 Provider: Dr. Celestino Traylor MD Age/Sex: 24/F Location: [facility] Status: Signed Intake Vital Signs 06/27/24 17:01 09/27/24 15:24 10/31/24 16:08 10/31/24 16:09 Height 5 ft 9 in 5 ft 9 in 5 ft 9 in 5 ft 9 in Weight: 151 lb 3 oz BMI 22.3 BP 120/75 Intake Visit Reasons: 16wk ob Signs And Displays Sales Representative Required: No Is patient in pain?: No Allergies amoxicillin Allergy (Verified 10/31/24 16:08) Hives Penicillins (PCN) Allergy (Verified 10/31/24 16:08) Hives azithromycin (From Zithromax) Adverse Reaction (Verified 10/31/24 16:08) Nausea Medications ?Medication ?Instructions ?Recorded ?Confirmed ?Type PNV 153-FA 400 mcg-om3 35 mg-dha tab PO 09/14/2410/31 History 25 mg-epa 5 mg-fish oil chew tablet Last Menstrual Period: 12/15/22 Zika: Zika virus screening: Negative : No PFSH PFSH Medical History History of delivery Anemia Family history of autism Surgical History History of tonsillectomy Family History Mother Factor V deficiency Sister Factor V deficiency Social History adopted: No household members: children number of children: 2 current occupational status: employed current occupation: [email or web address] current occupational exposures/hazards: No pets and animals: Yes (not managing litterbox) pets and animals: cat(s) history of recent travel: No sexually active: Yes Smoking Status: Never smoker alcohol intake: never substance use type: does not use well-balanced diet: daily or most days caffeine: Yes Type: carbonated beverages Number of servings: 1 eating out: 1-3 times/week during the past year weight has: remained stable what type of physical activity do you participate in: none sharon/episcopal: Church seatbelt use: always do you feel safe at home: Yes additional social history: Wishes no to name FOB History 3 Elective abortions Hx Para 2 Spontaneous abortions Hx # Term Pregnancies Ectopic pregnancies Hx # Pregnancies Multiple births # of living children 2 Past Pregnancies Del. Date Name GA/Weeks Outcome Route Bth Weight Gen Labor Lgth Anesthesia Del Locatn Provider FOB 10/11/18 Saline Raymond 34 live - 6#1oz F emale 8 Hrs epidural [facility] Dr.Weeman Valdivia 10/08/23 Evaristo 39 live - full term 8#9oz Male none [facility] Fab HPI 16wk ob Details: GLADYS RING is a 24 year old who presents for routine OB visit. OB Visit PATRICIA Calculator Estimated Delivery Date Method Current WG Current Estimate 04/17/25 Ultrasound #1 16w 0d Other Estimates 04/13/25 Ultrasound #2 16w 4d Expected Delivery Route/Plan Labor Preferences- CB/BF classes: [] labor support person: [] labor intervention preferences: [] pain management options preferred: [] cut cord/dad catch: [] : [] PP control planned: [] discussed possible routes of delivery and associated risks: [] special requests: [] Specific Issue/Plans Covid status: [] Flu vaccine: [] Tdap vaccine: [] Rhogam: [] LARC form signed: [] Problem list reviewed and updated with the most current plan of care details and appropriate orders placed. Relevant counseling for the gestational age provided. Continue routine care and follow up unless otherwise noted in visit notes/problem list details Initial Weight: 153 lb Date -?-?-?-?-?-?-?-?-?-?-?-?- EGA Weight BP Urine Prot -?-?-?-?-?-?-?-?-?-?-?-?- Glucose FHR FuHt Pres Dilation -?-?-?-?-?--?-?-?-?-?-?-?- Effaced St Visit Note 09/27/24 -?-?-?-?-?-?-?-?-?-?-?-?- 11w 1d 153 lb (+0 oz) 136/74 -?-?-?-?-?-?-?-?-?-?-?-?- 167 -?-?-?-?-?-?-?-?-?-?-?-?- KW- CRL 4.95 con s with dates. Declines NIPT. MFM anatomy US ordered. 10/31/24 -?-?-?-?-?-?-?-?-?-?-?-?- 16w 0d 151 lb 3 oz (-1 lb 13 oz) 120/75 Negative -?-?-?-?-?-?-?-?-?-?-?-?- Negative 150 -?-?-?-?-?-?-?-?-?-?-?-?- SM- no vb crampi ng ACOG First Trimester First Trimester: Desire for , Alcohol, Tobacco Cessation, Illicit/Recreational Drug/Substance Use, Intimate Partner Violence, Barriers to care, Unstable Housing, Communication Barriers, Environmental/Work Hazards, Anticipated Course of Care, Toxoplasmosis Precations, Use of Any medications, Sexual activity, Exercise, Dental Care, Sauna/Hot tub use, Seat Belt use, Childbirth classes/Hospital facilities, Travel, Indications for Ultrasound and Screening for Aneuploidy; Discussed Second Trimester Second Trimester: Signs and Symptoms of Labor, Selecting a care provider, Reproductive Life Planning & Contreception, Care Planning, Depression/Anxiety and Intimate Partner Violence; Discussed Tobacco Cessation Third Trimester Third Trimester: Pain Management Plans, Labor support person(s), Immediate Larc, Signs and Symptoms of Preeclampsia, Education and Family Medical Leave or Disability Forms Results POC Urinalysis 2 Dip (Clinic) Office Urine Glucose Negative Last Edit by Iris Topete on 10/31/24 16:11 Office Urine Protein Negative Last Edit by Iris Topete on 10/31/24 16:11 Coding Level of Care Code OB Routine Diagnoses Supervision of high-risk O09.90 16 weeks gestation of Z3A.16 Weeks of gestation: 16 weeks Subchorionic hemorrhage, antepartum O46.8X9 Anemia D64.9 Abnormal Papanicolaou smear of cervix R87.619 Factor V deficiency D68.2 Asthma J45.909 Assessment and Plan Assessment and Plan (1) Supervision of high-risk : Status: Acute Comment: PRR ( waiting on gcc), , PATRICIA 04/17/25, Evaristo Warren FOB not involved. (2) : Status: Acute Qualifiers: Weeks of gestation: 16 weeks Qualified Code(s): Z3A.16 - 16 weeks gestation of Comment: declined NIPT & Carrier testing (3) Subchorionic hemorrhage, antepartum: Status: Acute Comment: noted on initial US (4) Anemia: Status: Acute Comment: add Fe (5) Abnormal Papanicolaou smear of cervix: Status: Acute Comment: LISL at NOB. 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 discussed with JV and plan for weekly nsts form 36 weeks and delivery at 39. anticoagulation only if . (7) Asthma: Status: Acute Comment: environmental induced Orders: Orders POC Urinalysis 2 Dip (Clinic) Today 10/31/24 4415 <Electronically signed by Amalia sandoval MD> Date _ Amalia Traylor MD Cosigner Signature: Date (if applicable) CC: ~ [facility] Work Phone: 1(530) 868-490108-14-2025 Evaluation note* Diagnosis Onset Date Resolution Status Admit Date Abnormal Papanicolaou smear of cervix acute September 27 3:20pm Anemia acute September 27, 2 025 3:20pm Asthma acute September 27, 2 025 3:20pm Factor V deficiency acute Aug2024 3:20pm acute September 27, 2 025 3:20pm Subchorionic hemorrhage, antepartum acute September 27 3:20pm Supervision of high-risk acute September 27 3:20pm [facility] Work Phone: 1(556) 319-948708-14-2025 Evaluation note* Diagnosis Onset Date Resolution Status Admit Date Abnormal Papanicolaou smear of cervix acute September 27 3:20pm Anemia acute September 27, 2 025 3:20pm Asthma acute September 27, 2 025 3:20pm Factor V deficiency acute Augus t 2024 3:20pm acute September 27, 2 025 3:20pm Subchorionic hemorrhage, antepartum acute September 27 3:20pm Supervision of high-risk acute September 27 3:20pm Abnormal Papanicolaou smear of cervix acute October 31, 2024 4:01pm Anemia acute October 4:01pm Asthma acute October 4:01pm Factor V deficiency acute Septe mb2024 4:01pm acute October 4:01pm Subchorionic hemorrhage, antepartum acute October 31, 2024 4:01pm Supervision of high-risk acute October 31, 2024 4:01pm [facility] Work Phone: [phone] [facility] [address] [place] [address], [address] [place] [address] OFFICE VISIT Date of Service: 09/27/24 MR#: [id number] Acct: [id number] Name: GLADYS RING Rep #: [id number] : 2000 Provider: KRISTINA Kiser Age/Sex: 24/F [place] [facility] Status: Signed Intake Vital Signs 06/27/24 17:01 09/27/24 15:24 Height 5 ft 9 in 5 ft 9 in Weight: 153 lb BMI 22.6 BP 136/74 H Intake Visit Reasons: *EST* NOB LMP 06/27, PATRICIA 04/03 Chief Complaint: New OB Signs And Displays Sales Representative Required: No Is patient in pain?: No Allergies amoxicillin Allergy (Verified 09/27/24 15:22) Hives Penicillins (PCN) Allergy (Verified 09/27/24 15:22) Hives azithromycin (From Zithromax) Adverse Reaction (Verified 09/27/24 15:22) Nausea Medications ?Medication ?Instructions ?Recorded ?Confirmed ?Type PNV 153-FA 400 mcg-om3 35 mg-dha tab PO 09/14/2409/27 History 25 mg-epa 5 mg-fish oil chew tablet Last Menstrual Period: 12/15/22 Have you fallen in the past year?: No PFSH PFSH Medical History History of delivery Anemia Family history of autism Surgical History History of tonsillectomy Family History Mother Factor V deficiency Sister Factor V deficiency Social History adopted: No household members: children number of children: 2 service: No current occupational status: employed current occupation: [email or web address] current occupational exposures/hazards: No pets and animals: Yes (not managing litterbox) pets and animals: cat(s) history of recent travel: No sexually active: Yes Smoking Status: Never smoker alcohol intake: never substance use type: does not use well-balanced diet: daily or most days caffeine: Yes Type: carbonated beverages Number of servings: 1 eating out: 1-3 times/week during the past year weight has: remained stable what type of physical activity do you participate in: none sharon/episcopal: Church seatbelt use: always do you feel safe at home: Yes additional social history: Wishes no to name FOB History 3 Elective abortions Hx Para 2 Spontaneous abortions Hx # Term Pregnancies Ectopic pregnancies Hx # Pregnancies Multiple births # of living children 2 Past Pregnancies Del. Date Name GA/Weeks Outcome Route Bth Weight Gen Labor Lgth Anesthesia Del Locatn Provider FOB 10/11/18 Edna Diaz 34 live - 6#1oz F emale 8 Hrs epidural [facility] Dr.Weeman Valdivia 10/08/23 Evaristo 39 live - full term 8#9oz Male none [facility] Fab HPI *EST* NOB LMP 06/27, PATRICIA 04/03 Details: GLADYS RING is a 24 year old who presents for routine OB visit. OB Visit PATRICIA Calculator Estimated Delivery Date Method Current WG Current Estimate 04/17/25 Ultrasound #1 11w 1d Other Estimates 04/13/25 Ultrasound #2 11w 5d Comments: HIV: Urine Culture: Sequential Screen: NIPT Screen: Expected Delivery Route/Plan Labor Preferences- CB/BF classes: [] labor support person: [] labor intervention preferences: [] pain management options preferred: [] cut cord/dad catch: [] : [] PP control planned: [] discussed possible routes of delivery and associated risks: [] special requests: [] Specific Issue/Plans Covid status: [] Flu vaccine: [] Tdap vaccine: [] Rhogam: [] LARC form signed: [] Problem list reviewed and updated with the most current plan of care details and appropriate ordersplaced. Relevant counseling for the gestational age provided. Continue routine care and follow up unless otherwise noted in visit notes/problem list details Initial Weight: 153 lb Date -?-?-?-?-?-?-?-?-?-?-?-?- EGA Weight BP Urine Prot -?-?-?-?-?-?-?-?-?-?-?-?- Glucose FHR FuHt Pres Dilation -?-?-?-?-?-?-?-?-?-?-?-?- Effaced St Visit Note 09/27/24 -?-?-?-?-?-?-?-?-?-?-?-?- 11w 1d 153 lb (+0 oz) 136/74 -?-?-?-?-?-?-?-?-?-?-?-?- 167 -?-?-?-?-?-?-?-?-?-?-?-?- KW- CRL 4.95 con s with dates. Declines NIPT. MFM anatomy US ordered. ACOG First Trimester First Trimester: Desire for , Alcohol, Tobacco Cessation, Illicit/Recreational Drug/Substance Use, Intimate Partner Violence, Barriers to care, Unstable Housing, Communication Barriers, Environmental/Work Hazards, Anticipated Course of Care, Nurtrition and weight gain, Toxoplasmosis Precations, Use of Any medications, Sexual activity, Exercise, Dental Care, Sauna/Hot tub use, Seat Belt use, Childbirth classes/Hospital facilities, Travel, Indications for Ultrasound and Screening for Aneuploidy Second Trimester Second Trimester: Signs and Symptoms of Labor, Selecting a care provider, Reproductive Life Planning & Contreception, Care Planning, Depression/Anxiety and Intimate Partner Violence; Discussed Tobacco Cessation Third Trimester Third Trimester: Pain Management Plans, Labor support person(s), Immediate Larc, Signs and Symptoms of Preeclampsia, [place] Education and Family Medical Leave or Disability Forms ROS Const Reports system reviewed and no additional complaints, except as documented, Denies fatigue, Denies headache(s) and Denies lethargy ENT Denies headache(s) Card Reports system reviewed and no additional complaints, except as documented Resp Reports system reviewed and no additional complaints, except as documented GI Reports system reviewed and no additional complaints, except as documented, Denies abdominal pain, Denies constipation, Denies cramping, Denies diarrhea and Denies dyspepsia Reports system reviewed and no additional complaints, except as documented, Denies abnormal vaginalbleeding, Denies difficulty voiding, Denies dyspareunia and Denies dysuria Musc Reports system reviewed and no additional complaints, except as documented Skin/Breast Reports system reviewed and no additional complaints, except as documented Neuro Yes system reviewed and no additional complaints, except as documented and No headache(s) Psych Reports system reviewed and no additional complaints, except as documented, Denies anhedonia and Denies anxiety Endo Reports system reviewed and no additional complaints, except as documented and Denies fatigue Exam Const General: cooperative, healthy appearing and comfortable Neck Neck: normal visual inspection and full ROM Chest Chest palpation & inspection: normal inspection of the chest Breast inspection: normal inspection of the breasts and normal inspection of the axillae Breast palpation: normal palpation of the breasts and normal palpation of the axillae Resp Effort & Inspection: normal respiratory effort and able to speak in complete sentences GI Inspection: normal to inspection Palpation: soft External Female Exam: normal external appearance and normal appearance of the urethra Urethra: normal appearance of the urethra Skin General: no rashes or lesions noted Neuro General: patient alert, patient awake and patient oriented x3 Extrem General: normal to inspection and full ROM Psych Appearance: grossly normal and well kempt Mental Status: mental status grossly normal Mood: congruent mood Affect: normal affect Speech and Movement: speech and movement normal Thought Process: normal Thought Content: normal Coding Level of Care Code OB Routine Diagnoses Supervision of high-risk O09.90 11 weeks gestation of Z3A.11 Weeks of gestation: 11 weeks Subchorionic hemorrhage, antepartum O46.8X9 Anemia D64.9 Abnormal Papanicolaou smear of cervix R87.619 Factor V 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 (2) : Status: Acute Qualifiers: Weeks of gestation: 11 weeks Qualified Code(s): Z3A.11 - 11 weeks gestation of Comment: declined NIPT & Carrier testing (3) Subchorionic hemorrhage, antepartum: Status: Acute Comment: noted on initial US (4) Anemia: Status: Acute Comment: add Fe (5) Abnormal Papanicolaou smear of cervix: Status: Acute Comment: LISL at NOB. 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 discussed with JV and plan for weekly nsts form 36 weeks and delivery at 39. anticoagulation only if . (7) Asthma: Status: Acute Comment: environmental induced Orders: Orders CBC W/Diff, Automated 09/14/24 O09.90 - Supervision of high risk , unspecified, unspecified trimester Type & Screen 09/14/24 O09.90 - Supervision of high risk , unspecified, unspecified trimester Rubella IgG 09/14/24 O09.90 - Supervision of high risk , unspecified, unspecified trimester Hepatitis C Antibody 09/14/24 O09.90 - Supervision of high risk , unspecified, unspecifiedtrimester Hepatitis B Surface Antigen 09/14/24 O09.90 - Supervision of high risk , unspecified, unspecified trimester Culture, Urine 09/14/24 O09.90 - Supervision of high risk , unspecified, unspecified trimester Syphilis Antibodies 09/14/24 O09.90 - Supervision of high risk , unspecified, unspecified trimester Chlamydia/GC SIERRA aptima 09/14/24 O09.90 - Supervision of high risk , unspecified, unspecified trimester HIV 09/14/24 O09.90 - Supervision of high risk , unspecified, unspecified trimester PAP I-G w/rfx hrHPV-Aptima 09/14/24 O09.90 - Supervision of high risk , unspecified, unspecified trimester, Z12.4 - Encounter for screening for malignant neoplasm of cervix Comments Comments: Patient oriented to practice and discussed care expectations and screenings. ACOG book offered to patient. Discussed routine and specially indicated labs if needed- patient consents to testing. See problem list details for plan information. Optional screening including maternal carrier screenings, neural tube defect screening, genetic screening options including quad screen, nuchal translucency, sequential screening, and NIPT screening offered to patient and patient chose: declines Clinical Quality Measures Falls Risk Screening/Assistive Devices Have you fallen in the past year?: No 09/27/24 1550 s KRISTINA> Date _ Park Kiser CNM Cosigner Signature: Date (if applicable) CC: ~ [facility]08-14-2025 Progress note Author Park Kiser [facility] Note Date/Time September 27, 2024 3: 50pm [facility] [address] [place] [address], [address] [place] [address] OFFICE VISIT Date of Service: 09/27/24 MR#: [id number] Acct: [id number] Name: GLADYS RING [place] Rep #: [id number] : 2000 Provider: KRISTINA Kiser Age/Sex: 24/F [place] [facility] Status: Signed Intake Vital Signs 06/27/24 17:01 09/27/24 15:24 Height 5 ft 9 in 5 ft 9 in Weight: 153 lb BMI 22.6 BP 136/74 H Intake Visit Reasons: *EST* NOB LMP 06/27, PATRICIA 04/03 Chief Complaint: New OB Signs And Displays Sales Representative Required: No Is patient in pain?: No Allergies amoxicillin Allergy (Verified 09/27/24 15:22) Hives Penicillins (PCN) Allergy (Verified 09/27/24 15:22) Hives azithromycin (From Zithromax) Adverse Reaction (Verified 09/27/24 15:22) Nausea Medications ?Medication ?Instructions ?Recorded ?Confirmed ?Type PNV 153-FA 400 mcg-om3 35 mg-dha tab PO 09/14/2409/27 History 25 mg-epa 5 mg-fish oil chew tablet Last Menstrual Period: 12/15/22 Have you fallen in the past year?: No PFSH PFSH Medical History History of delivery Anemia Family history of autism Surgical History History of tonsillectomy Family History Mother Factor V deficiency Sister Factor V deficiency Social History adopted: No household members: children number of children: 2 service: No current occupational status: employed current occupation: [email or web address] current occupational exposures/hazards: No pets and animals: Yes (not managing litterbox) pets and animals: cat(s) history of recent travel: No sexually active: Yes Smoking Status: Never smoker alcohol intake: never substance use type: does not use well-balanced diet: daily or most days caffeine: Yes Type: carbonated beverages Number of servings: 1 eating out: 1-3 times/week during the past year weight has: remained stable what type of physical activity do you participate in: none sharon/episcopal: Church seatbelt use: always do you feel safe at home: Yes additional social history: Wishes no to name FOB History 3 Elective abortions Hx Para 2 Spontaneous abortions Hx # Term Pregnancies Ectopic pregnancies Hx # Pregnancies Multiple births # of living children 2 Past Pregnancies Del. Date Name GA/Weeks Outcome Route Bth Weight Gen Labor Lgth Anesthesia Del Locatn Provider FOB 10/11/18 Saline Raymond 34 live - 6#1oz F emale 8 Hrs epidural [facility] Dr.Weeman Valdivia 10/08/23 Evaristo 39 live - full term 8#9oz Male none [facility] Fab HPI *EST* NOB LMP 06/27, PATRICIA 04/03 Details: GLADYS RING is a 24 year old who presents for routine OB visit. OB Visit PATRICIA Calculator Estimated Delivery Date Method Current WG Current Estimate 04/17/25 Ultrasound #1 11w 1d Other Estimates 04/13/25 Ultrasound #2 11w 5d Comments: HIV: Urine Culture: Sequential Screen: NIPT Screen: Expected Delivery Route/Plan Labor Preferences- CB/BF classes: [] labor support person: [] labor intervention preferences: [] pain management options preferred: [] cut cord/dad catch: [] : [] PP control planned: [] discussed possible routes of delivery and associated risks: [] special requests: [] Specific Issue/Plans Covid status: [] Flu vaccine: [] Tdap vaccine: [] Rhogam: [] LARC form signed: [] Problem list reviewed and updated with the most current plan of care details and appropriate orders placed. Relevant counseling for the gestational age provided. Continue routine care and follow up unless otherwise noted in visit notes/problem list details Initial Weight: 153 lb Date -?-?-?-?-?-?-?-?-?-?-?-?- EGA Weight BP Urine Prot -?-?-?-?-?-?-?-?-?-?-?-?- Glucose FHR FuHt Pres Dilation -?-?-?-?-?-?-?-?-?-?-?-?- Effaced St Visit Note 09/27/24 -?-?-?-?-?-?-?-?-?-?-?-?- 11w 1d 153 lb (+0 oz) 136/74 -?-?-?-?-?-?-?-?-?-?-?-?- 167 -?-?-?-?-?-?-?-?-?-?-?-?- KW- CRL 4.95 con s with dates. Declines NIPT. MFM anatomy US ordered. ACOG First Trimester First Trimester: Desire for , Alcohol, Tobacco Cessation, Illicit/Recreational Drug/Substance Use, Intimate Partner Violence, Barriers to care, Unstable Housing, Communication Barriers, Environmental/Work Hazards, Anticipated Course of Care, Nurtrition and weight gain, Toxoplasmosis Precations, Use of Any medications, Sexual activity, Exercise, Dental Care, Sauna/Hot tub use, Seat Belt use, Childbirth classes/Hospital facilities, Travel, Indications for Ultrasound and Screening for Aneuploidy Second Trimester Second Trimester: Signs and Symptoms of Labor, Selecting a care provider, Reproductive Life Planning & Contreception, Care Planning, Depression/Anxiety and Intimate Partner Violence; Discussed Tobacco Cessation Third Trimester Third Trimester: Pain Management Plans, Labor support person(s), Immediate Larc, Signs and Symptoms of Preeclampsia, Education and Family Medical Leave or Disability Forms ROS Const Reports system reviewed and no additional complaints, except as documented, Denies fatigue, Denies headache(s) and Denies lethargy ENT Denies headache(s) Card Reports system reviewed and no additional complaints, except as documented Resp Reports system reviewed and no additional complaints, except as documented GI Reports system reviewed and no additional complaints, except as documented, Denies abdominal pain, Denies constipation, Denies cramping, Denies diarrhea and Denies dyspepsia Reports system reviewed and no additional complaints, except as documented, Denies abnormal vaginal bleeding, Denies difficulty voiding, Denies dyspareunia and Denies dysuria Musc Reports system reviewed and no additional complaints, except as documented Skin/Breast Reports system reviewed and no additional complaints, except as documented Neuro Yes system reviewed and no additional complaints, except as documented and No headache(s) Psych Reports system reviewed and no additional complaints, except as documented, Denies anhedonia and Denies anxiety Endo Reports system reviewed and no additional complaints, except as documented and Denies fatigue Exam Const General: cooperative, healthy appearing and comfortable Neck Neck: normal visual inspection and full ROM Chest Chest palpation & inspection: normal inspection of the chest Breast inspection: normal inspection of the breasts and normal inspection of the axillae Breast palpation: normal palpation of the breasts and normal palpation of the axillae Resp Effort & Inspection: normal respiratory effort and able to speak in complete sentences GI Inspection: normal to inspection Palpation: soft External Female Exam: normal external appearance and normal appearance of the urethra Urethra: normal appearance of the urethra Skin General: no rashes or lesions noted Neuro General: patient alert, patient awake and patient oriented x3 Extrem General: normal to inspection and full ROM Psych Appearance: grossly normal and well kempt Mental Status: mental status grossly normal Mood: congruent mood Affect: normal affect Speech and Movement: speech and movement normal Thought Process: normal Thought Content: normal Coding Level of Care Code OB Routine Diagnoses Supervision of high-risk O09.90 11 weeks gestation of Z3A.11 Weeks of gestation: 11 weeks Subchorionic hemorrhage, antepartum O46.8X9 Anemia D64.9 Abnormal Papanicolaou smear of cervix R87.619 Factor V deficiency D68.2 Asthma J45.909 Assessment and Plan Assessment and Plan (1) Supervision of high-risk : Status: Acute Comment: , PATRICIA 04/17/25, Evaristo Warren, FOB not involved. (2) : Status: Acute Qualifiers: Weeks of gestation: 11 weeks Qualified Code(s): Z3A.11 - 11 weeks gestation of Comment: declined NIPT & Carrier testing (3) Subchorionic hemorrhage, antepartum: Status: Acute Comment: noted on initial US (4) Anemia: Status: Acute Comment: add Fe (5) Abnormal Papanicolaou smear of cervix: Status: Acute Comment: LISL at NOB. 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 discussed with JV and plan for weekly nsts form 36 weeks and delivery at 39. anticoagulation only if . (7) Asthma: Status: Acute Comment: environmental induced Orders: Orders CBC W/Diff, Automated 09/14/24 O09.90 - Supervision of high risk , unspecified, unspecified trimester Type & Screen 09/14/24 O09.90 - Supervision of high risk , unspecified, unspecified trimester Rubella IgG 09/14/24 O09.90 - Supervision of high risk , unspecified, unspecified trimester Hepatitis C Antibody 09/14/24 O09.90 - Supervision of high risk , unspecified, unspecified trimester Hepatitis B Surface Antigen 09/14/24 O09.90 - Supervision of high risk , unspecified, unspecified trimester Culture, Urine 09/14/24 O09.90 - Supervision of high risk , unspecified, unspecified trimester Syphilis Antibodies 09/14/24 O09.90 - Supervision of high risk , unspecified, unspecified trimester Chlamydia/GC SIERRA aptima 09/14/24 O09.90 - Supervision of high risk , unspecified, unspecified trimester HIV 09/14/24 O09.90 - Supervision of high risk , unspecified, unspecified trimester PAP I-G w/rfx hrHPV-Aptima 09/14/24 O09.90 - Supervision of high risk , unspecified, unspecified trimester, Z12.4 - Encounter for screening for malignant neoplasm of cervix Comments Comments: Patient oriented to practice and discussed care expectations and screenings. ACOG book offered to patient. Discussed routine and specially indicated labs if needed- patient consents to testing. See problem list details for plan information. Optional screening including maternal carrier screenings, neural tube defect screening, genetic screening options including quad screen, nuchal translucency, sequential screening, and NIPT screening offered to patient and patient chose: declines Clinical Quality Measures Falls Risk Screening/Assistive Devices Have you fallen in the past year?: No 09/27/24 1550 <Electronically signed by Park jarvis CNM> Date _ Park Kiser CNM Cosigner Signature: Date (if applicable) CC: ~ [facility] [facility] Work Phone: 1(255) [phone] Radiology Diagnostic study note [facility] Services [address] [place] [address] [id number] Transvaginal w/Preg US MR#: [id number] Acct: [id number] Name: GLADYS RING Rep #: [id number] : 2000 F 24 From: Zonia Monzon MD PCP: Jennifer Leal PA-C Status: SHAY LÓPEZ Study:Transvaginal w/Preg US Date of Exam: 08/31/24 Exam# [id number] Ordering Dr: Amalia Flores MD PROCEDURE: TRANSVAGINAL W/PREG US 08/31/2024 REASON FOR EXAM: DATING TECHNIQUE: TRANSVAGINAL W/PREG US COMPARISON: 06/27/2024 FINDINGS Within the uterine cavity, there is a single live IUP, approximate ultrasound age of 7 weeks and 2 days by crown-rump length. heart rate of 152 beats per minute. Small implant bleed measuring up to 0.6 cm. The right ovary measures 2 x 2 x 4 cm with a 2.7 cm corpus luteal cyst. The left ovary measures 1 x2 x 2 cm. No pelvic free fluid. US/Transvaginal w/Preg US IMPRESSION: Single live IUP, approximate ultrasound age of 7 weeks and 2 days. Estimated due date by ultrasoundis 04/17/2025. Reading Location: [place] [address] CC: YULIYA Leal; Dr. Amalia Traylor MD ~ Flatwork Catcher: Signed [facility]05-14-2025 Radiology Diagnostic study note [facility] Services [address] [place] [address] [id number] Transvaginal w/Preg US MR#: [id number] Acct: [id number] Name: GLADYS RING Rep #: [id number] : 2000 F 24 From: Josy Jaeger MD PCP: Jennifer Leal PA-C Status: REG E R Study:Transvaginal w/Preg US Date of Exam: 06/27/24 Exam# [id number] Ordering Dr: Sabina Jeffrey DO EXAM: US Pelvis Transvaginal CLINICAL INDICATION: VAGINAL BLEEDING, EARLY TECHNIQUE: Real-time transvaginal pelvic ultrasound with image documentation. Transvaginal imaging was used for better evaluation of the endometrium and adnexa. COMPARISON: No relevant prior studies available. FINDINGS: UTERUS/CERVIX: Cervix closed. Normal endometrial stripe thickness. No myometrial mass. The uterus measures 7.9 x 5.9 x 3.5 cm. RIGHT OVARY: Unremarkable. Normal blood flow. The right ovary measures 3.3 x 2.2 x 2.0 cm. LEFT OVARY: Unremarkable. Normal blood flow. The left ovary measures 2.7 x 1.7 x 1.4 cm. FREE FLUID: No free fluid. BLADDER: Empty bladder which cannot be evaluated with this probe. OTHER FINDINGS: Gestational sac not visualized. Yolk sac not visualized. heart tone not detected. US/Transvaginal w/Preg US IMPRESSION: Beta hCG is not available at the time of this interpretation. No evidence of intrauterine . This could be secondary to early . Ectopic can not be excluded. Continued trending serial beta HCG level and repeat pelvic ultrasound in 10-14 days recommended. Reading Location: [id number] CC: YULIYA Leal; Dr. Luis Jeffrey, DO ~ Flatwork Catcher: Signed [facility]01-19-2024 NotePap Smear Specimen AdequacyJanuary 2023 4:41pmComment.Satisfactory for evaluation. Endocervical and/or squamous metaplasticcells (endocervical component)are present.[facility]ED A#[id number] Medical Specialty Hospital [facility] SouthComment on above:Satisfactory for evaluation. Endocervical and/or squamous metaplasticcells (endocervical component)are present.03-04-2023 NotePap Smear Specimen AdequacyJanuary 2023 5:41pmComment.Satisfactory for evaluation. Endocervical and/or squamous metaplasticcells (endocervical component)are present.[facility] INTER[facility]ED A#[id number] Medical Specialty Hospital - [facility] SouthComment on above:Satisfactory for evaluation. Endocervical and/or squamous metaplasticcells (endocervical component)are present.Evaluation note* Diagnosis Onset Date Resolution Status Asthma acute Factor V deficiency acute acute Supervision of high-risk acute [facility] Work Phone: Evaluation note* Diagnosis Onset Date Resolution Status Asthma acute Factor V deficiency acute acute Supervision of high-risk acute Factor V deficiency acute History of exposure to cat feces acute acute Supervision of high-risk acute Factor V deficiency acute History of exposure to cat feces acute acute Supervision of high-risk acute [facility] Work Phone: Evaluation noteNo assessment information available [facility] Work Phone: Evaluation note* Diagnosis Onset Date Resolution Status Admit Date Abnormal Papanicolaou smear of cervix acute September 27 3:20pm Anemia acute September 27, 025 3:20pm Asthma acute September 27 025 3:20pm Factor V deficiency acute Augus t 2024 3:20pm acute September 27, 025 3:20pm Subchorionic hemorrhage, antepartum acute September 27 3:20pm Supervision of high-risk acute September 27 3:20pm [facility] Work Phone: Hospital Discharge instructions Additional Instructions Thank you for trusting us with your care today! Please take Tylenol (2 pills, 650 mg) every 6 hours as needed for pain and fever control. Your ultrasound did not show an obvious outside the uterus or in the uterus. This could be related to your gestational age of 5 weeks workup related to the miscarriage. You will require close outpatient MACHINE LAY OUT WORKER follow-up for repeat lab testing repeat imaging Please return to the emergency department if your symptoms change or worsen. Please follow with your MACHINE LAY OUT WORKER for further outpatient evaluation and management. [facility] Work Phone: Reason for referral (narrative)No reason for referral information availableWTriHealth Bet[facility] Work Phone: Summary Purpose Family History No Family History Records Found Relationship Condition Age at Onset Recorded Date/T goyo mother Factor V deficiency Unknown sister Factor V deficiency Unknown Advance Directives No Advanced Directives Records Found Advance Directive Response Recorded Date/ Time Living Will No February 18 11:47am Power of Tile Layer No February 18 024 11:47am Advance Directive Response Recorded Date/ Time Living Will No February 18 12:47pm Power of Tile Layer No February 18 12:47pm Advance Directive Response Recorded Date/ Time Do you have a Healthcare Power of Tile Layer? No June 27, 2024 6:17pm Chief Complaint and Reason for Visit Chief Complaint NOB LMP 12/15 Reason for Visit Asthma Factor V deficiency Supervision of high-risk Chief Complaint NOB LMP 12/15 DATING Reason for Visit Asthma Factor V deficiency Supervision of high-risk Chief Complaint NOB LMP 12/15 DATING 15 WK OB 19 WK OB ANATOMY Reason for Visit Asthma Factor V deficiency Supervision of high-risk Factor V deficiency History of exposure to cat feces Supervision of high-risk Factor V deficiency History of exposure to cat feces Supervision of high-risk Chief Complaint Admit Date MISCARRIAGE June 27, 2024 5:00p m Chief Complaint Admit Date MISCARRIAGE June 27, 2024 5:00p m DATING August 31, 2024 4:26 pm Chief Complaint Admit Date MISCARRIAGE June 27, 2024 5:00p m DATING August 31, 2024 4:26 pm *EST* NOB LMP 06/27, PATRICIA 04/03 3:20pm Reason for Visit Admit Date Abnormal Papanicolaou smear of cervix [facility] 2024 3:20pm Anemia September 27, 2024 3: 20pm Asthma September 27, 2024 3: 20pm Factor V deficiency September 27, 2024 3: 20pm September 27, 2024 3: 20pm Subchorionic hemorrhage, antepartum Augu 2024 3:20pm Supervision of high-risk Augus t 2024 3:20pm Chief Complaint Admit Date DATING August 31, 2024 4:26 pm *EST* NOB LMP 06/27, PATRICIA 04/03 3:20pm 16wk ob October 31, 2024 4:01pm Reason for Visit Admit Date Abnormal Papanicolaou smear of cervix [facility] 2024 3:20pm Anemia September 27, 2024 3: 20pm Asthma September 27, 2024 3: 20pm Factor V deficiency September 27, 2024 3: 20pm September 27, 2024 3: 20pm Subchorionic hemorrhage, antepartum Augu 2024 3:20pm Supervision of high-risk Augus t 2024 3:20pm Abnormal Papanicolaou smear of cervix Se ptember 2024 4:01pm Anemia October 31, 2024 4:01pm Asthma October 31, 2024 4:01pm Factor V deficiency October 31, 2024 4:01pm October 31, 2024 4:01pm Subchorionic hemorrhage, antepartum Sept ember 2024 4:01pm Supervision of high-risk Tc karina 2024 4:01pm Additional Source Comments INFORMATION SOURCE (unrecogn ized section and content) DATE CREATED AUTHOR 12/19/2020 [facility] DATE CREATED AUTHOR AUTHOR'S ORGANIZ ATION 09/01/2024 [facility] DATE CREATED AUTHOR AUTHOR'S ORGANIZ ATION 12/14/2024 [facility] Care Teams (unrecognized sec tion and content) Team Status: Active Member Role Status Dates Jennifer Leal PA, PA-C Family Provider Active PAPER HANGER. Dominga Alcaraz , PAPER HANGER-C Primary Care Provider Activ e Team Status: Inactive Member Role Status Dates Park Kiser CNM Attending Provider Active PAPER HANGER. Dominga Alcaraz , PAPER HANGER-C Primary Care Provider, Refe rring Provider Active Team Status: Inactive Member Role Status Dates PAPER HANGEREverett Alcaraz , PAPER HANGER-C Primary Care Provider Activ e Park Kiser CNM Attending Provider, Referring Pro vider Active Team Status: Inactive Member Role Status Dates PAPER HANGER. Dominga Alcaraz , PAPER HANGER-C Primary Care Provider, Refe rring Provider Active Iris Leal PAPER HANGER, PAPER HANGER-C Attending Provider Active Team Status: Inactive Member Role Status Dates PAPER HANGER. Dominga Alcaraz , PAPER HANGER-C Primary Care Provider Activ e Iris Leal PAPER HANGER, PAPER HANGER-C Attending Provider, Referring Provider Active Team Status: Active Member Role Status Dates Jennifer Leal PA, PA-C Primary Care Provider Active Team Status: Inactive Member Role Status Dates Dr. Luis Jeffrey DO Emergency Provider Active Start: June 27, 2024 End: June 27, 2024 Jennifer Leal PA, PA-C Primary Care Provider Active Start: June 27, 2024 End: June 27, 2024 Team Status: Active Member Role/Relationship Status Dates Jennifer Leal PA, PA-C Primary Care Provider Active Team Status: Inactive Member Role/Relationship Status Dates Dr. Luis Jeffrey DO Attending Provider Active Start: June 27, 2024 End: June 27, 2024 Dr. Luis Jeffrey DO Emergency Provider Active Start: June 27, 2024 End: June 27, 2024 Jennifer Leal PA, PA-C Primary Care Provider Active Start: June 27, 2024 End: June 27, 2024 Team Status: Inactive Member Role/Relationship Status Dates Jennifer Leal PA, PA-C Primary Care Provider Active Start: August 31, 2024 End: August 31, 2024 Dr. Amalia Traylor MD Attending Provider Active Start: August 31, 2024 End: August 31, 2024 Dr. Amalia Traylor MD Referring Provider Active Start: August 31, 2024 End: August 31, 2024 Team Status: Inactive Member Role/Relationship Status Dates Jennifer Leal PA, PA-C Primary Care Provider Active Start: September 27, 2024 End: September 27, 2024 Jenniferchandni Leal PA, PA-C Referring Provider Active Start: September 27, 2024 End: September 27, 2024 Park Kiser CNM Attending Provider Active S tart: September 27, 2024 End: September 27, 2024 Team Status: Active Member Role/Relationship Status Dates Jennifer Leal PA, PA-C Primary Care Provider Active Start: September 27, 2024 Park Kiser CNM Attending Provider Active S tart: September 27, 2024 Team Status: Inactive Member Role/Relationship Status Dates Jennifer Leal PA, PA-C Primary Care Provider Active Start: September 27, 2024 End: September 27, 2024 Park Kiser CNM Attending Provider Active S tart: September 27, 2024 End: September 27, 2024 Team Status: Active Member Role/Relationship Status Dates Jennifer Leal PA, PA-C Primary care physician Active Team Status: Inactive Member Role/Relationship Status Dates Jenniferchandni Leal PA, PA-C Primary care physician Active Start: August 31, 2024 End: August 31, 2024 Dr. Amalia Traylor MD Attending physician Active Start: August 31, 2024 End: August 31, 2024 Dr. Amalia Traylor MD Referring Provider Active Start: August 31, 2024 End: August 31, 2024 Team Status: Inactive Member Role/Relationship Status Dates Jennifer Leal PA, PA-C Primary care physician Active Start: September 27, 2024 End: September 27, 2024 Jenniferchandni Leal PA, PA-C Referring Provider Active Start: September 27, 2024 End: September 27, 2024 Park Kiser CNM Attending physician Active Start: September 27, 2024 End: September 27, 2024 Team Status: Inactive Member Role/Relationship Status Dates Jennifer RAMIREZ PA-C Primary care physician Active Start: September 27, 2024 End: September 27, 2024 Park Kiser CNM Attending physician Active Start: September 27, 2024 End: September 27, 2024 Team Status: Inactive Member Role/Relationship Status Dates Jennifer RAMIREZ PA-C Primary care physician Active Start: October 31, 2024 End: October 31, 2024 Jennifer RAMIREZ PA-C Referring Provider Active Start: October 31, 2024 End: October 31, 2024 Dr. Amalia Traylor MD Attending physician Active Start: October 31, 2024 End: October 31, 2024 Goals (unrecognized section and content) Type Care Experience Labor Preferences-CB /BF classes: []labor support person: []labor intervention preferences: []pain management options preferred: []cut cord/dad catch: []: []PP control planned: []discussed possible routes of delivery and associated risks: []special requests: [] FOR RECORDS PERTAINING TO PATIENTS WHO ARE [...] BE BASED ON THE PRIMARY CLINICAL RECORDS. [employer] provides no warranty or guarantee of the accuracy or completeness of information in this document.
[2025-01-26 09:28] LABS: Hematocrit 32.8 % (37-47); Hemoglobin 11.5 g/dL (12.0-15.0); Immature Granulocytes Count 0.090 X10^3/uL (0.0-0.0); Mean Corp Hgb Conc 35.1 g/dL (32-36); Mean Corpuscular Volume 81.6 fL (81-99); Mean Platelet Vol. 10.4 fl (6.2-12.0); NRBC Flagged by Analyzer 0 % (0-5); Platelet Count 265 K/mm3 (150-450); RBC Distribution Width CV 11.9 % (11.6-14.6); RBC Distribution Width SD 35.9 fl (35.1-43.9); Red Blood Count 4.02 M/mm3 (4.2-5.4); White Blood Count 12.0 K/mm3 (4.4-11.0)
[2025-01-26 10:32] LABS: Glucose Challenge Gest 1H 50g 97 mg/dL (70-140); HIV Nonreactive (Nonreactive); Syphilis Antibodies Nonreactive (Nonreactive)
== END | disposition home or self-care (01) ==
LOC: LAB 08:51
PROVIDERS: PCP Family Medicine; Referring Provider Obstetrics & Gynecology; Visit Provider Obstetrics & Gynecology
DX: O09.92 Supervision of high risk pregnancy, unspecified, second trimester (principal); Z13.1 Encounter for screening for diabetes mellitus; D68.2 Hereditary deficiency of other clotting factors; Z3A.24 24 weeks gestation of pregnancy
CPT/HCPCS: 36415; 82950; 85025; 86703; 86780